=== PATIENT | female | born 1985 | race Caucasian/White ===

== ENCOUNTER 2018-10-25 10:45 | Outpatient (REF) | payer MEDICAID, SELFPAY ==
[2018-10-25 13:55] LABS: HCT 40.4 % (36.0-46.0); HGB 13.5 g/dL (12.0-15.5); Mean Corp. HGB Concentration 33.4 g/dL (32.0-36.0); Mean Corpuscular Hemoglobin 29.2 pg (27.0-33.0); Mean Corpuscular Volume 87.3 fL (80-95); Mean Platelet Volume 10.1 fL (8.0-11.0); Platelet Count 345 x1000/uL (130-400); RBC 4.63 m/cumm (4.00-5.20); RBC Distribution Width 12.5 % (11.7-14.6); White Blood Cell Count 6.47 k/cumm (4.4-10.8)
[2018-10-25 14:23] LABS: TSH (W/Ref FT4) 3.55 uIU/mL (0.358-3.74)
== END 2018-10-25 11:05 ==
LOC: NCHCN 10:45
PROVIDERS: PCP Nurse Practitioner Adult Health; Visit Provider Family Medicine
DX: R53.83 Other fatigue (principal)
CPT/HCPCS: 85027; 84443

== ENCOUNTER 2020-09-13 17:17 | Outpatient (REF) | payer MEDICAID, SELFPAY ==
--- NOTE | 2020-09-13 15:00 | PAPFT_PTH ---
PATIENT: Christina Segal LOC: NCN #:[id number] AGE/SX: 35/F ROOM: RE09/13/[address]: Ary Pradhan : 1985 BED: DIS: 09/13/2020 SPEC #: [id number] RECD: 09/14/20 13:05 STATUS: OMAR REMichelle #: [id number] FAM: 09/13/20 15:[address]: Ary Pradhan DEPT: [facility] Cytology RECD BY: Jil Christensen Tissues: 1 - CX/ENDOCX FOR PAP SMEARS Procedures: PAP THIN PREP/UVM Screening HPV DNA PROBE Comments: [id number] (CHLAMYDIA/GC)
[2020-09-17 13:39] LABS: Chlamydia Result Negative (Negative); GC Result Negative (Negative)
== END 2020-09-13 17:37 ==
LOC: NCHCN 17:17
PROVIDERS: PCP Family Medicine; Visit Provider Family Medicine
DX: Z11.3 Encounter for screening for infections with a predominantly sexual mode of transmission (principal); Z12.4 Encounter for screening for malignant neoplasm of cervix; Z11.51 Encounter for screening for human papillomavirus (HPV)
CPT/HCPCS: 87491; 87591; 88142; 87624

== ENCOUNTER 2021-06-25 01:25 | Outpatient (CLI) | payer MEDICAID, SELFPAY ==
--- NOTE | 2021-06-25 08:30 | RT.EKG_ITS ---
APPROVED REPORT Exam: Resting ECG Reason for Exam: high risk med Patient Location: O HR:71 bpm ECG Measurements Heart Rate 71 AXIS CO 177 P 52 QRSd 78 QRS 49 QT 423 T 43 QTc 458 Conclusion Sinus rhythm...normal P axis, V-rate 60- 99 Normal Electrocardiogram
== END 2021-06-25 01:26 | disposition home or self-care (01) ==
LOC: RT 01:25
PROVIDERS: PCP Family Medicine; Visit Provider Family Medicine
DX: Z51.81 Encounter for therapeutic drug level monitoring (principal)
CPT/HCPCS: 93005; 93010

== ENCOUNTER 2021-08-09 07:26 | Emergency (ER) | payer MEDICAID, SELFPAY ==
[2021-08-09] VITALS (15 sets, daily range): BP systolic 154–176; BP diastolic 97–117; PULSE 75–102; RESP 4–25; TEMP 37–37.1; O2SAT 86–100
--- NOTE | 2021-08-09 07:30 | RT.EKG_ITS ---
APPROVED REPORT Exam: Resting ECG Reason for Exam: sob Patient Location: E HR:77 bpm ECG Measurements Heart Rate 77 AXIS KS 165 P 64 QRSd 83 QRS 31 QT 428 T 27 QTc 483 Conclusion Sinus rhythm...normal P axis, V-rate 60- 99
[2021-08-09] MEDS: Albuterol/Ipratropium 3 ML UPD VIAL (08:13)
--- NOTE | 2021-08-09 08:15 | DI.RAD_ITS ---
Exam(s) XR PORTABLE CHEST AP EXAM: XR PORTABLE CHEST AP CLINICAL HISTORY: cough, covid TECHNIQUE: 2D digital imaging was performed of the chest. One image was obtained. An AP view was ob tained. COMPARISON: No exams were available for comparison FINDINGS: MEDIASTINUM: Normal. HEART: Normal. PULMONARY VASCULATURE: Normal. LUNGS: Clear. PLEURAL SPACE: No pleural effusion or pneumothorax. BONE:Within normal limits for the patient's age. OTHER FINDINGS:Normal. IMPRESSION: No acute pulmonary findings. DATA REPOSITORY: RADIATION DOSE DELIVERED:
--- NOTE | 2021-08-09 08:23 | W.ED.GENAD ---
Discharge Plan Disposition Patient Disposition: HOME Condition: Stable Discharge Details Clinical Impression: Bronchitis, COVID-19 Primary Care Provider: Ary Pradhan ED Provider: Jil Mcduffie Home Meds and New Rx's Prescriptions: New benzonatate 200 mg capsule 200 mg PO BID PRNQty: 10 RF: 0 prednisone 20 mg tablet 40 mg PO DAILY Qty: 10 RF: 0 Combivent Respimat 20-100 mcg/actuation mist 1 puff inhalation Q6H Qty: 4 RF: 0 Continued metronidazole 500 MG tablet 2 g PO ONCE Qty: 4 RF: 1 clindamycin phosphate [Cleocin T] 60 ML lotion 60 ml Topical BID Qty: 0.5 RF: 1 zolpidem 10 mg tablet 10 mg PO QHS RF: 0 escitalopram oxalate 20 mg tablet 20 mg PO DAILY RF: 0 methadone 10 mg Tablet 10 mg PO DAILY RF: 0 Discharge Instructions Instructions: Acute Bronchitis (ED) Additional Instructions: Continue to isolate until your symptoms improve Combivent 1 puff every 6 hours Increase fluid hydration, have hot tea every several hours to help break up the mucus Increase your fluid hydration to help break up the mucus Take the prednisone as prescribed for the next several days Humidifier in your room at night Please return with persistent symptoms greater than 3 days please be reassessed with worsening shortness of breath despite medical interventions, or should you have new or worsening Referrals: Ary Pradhan [Primary Care Provider] - Medical Decision Making Patient is resting comfortably in room, she is not hypoxic, she is in no respiratory distress She is feeling symptomatic improvement after 2 DuoNeb administration of steroids Clinically my suspicion for pulmonary embolism is quite low She has a pulse oximeter at home and this has not been low for her, I discussed need to return should she desaturate below 90% on room air She will be discharged with Tessalon Perles, prednisone, and a Combivent inhaler for suspected bronchitis I see no indication for antibiotics at this time she has a viral syndrome She will continue to isolate until her symptoms resolve Her chest x-ray does not show acute abnormality per my review, pending radiology interpretation No calf swelling or tenderness appreciated Initially oxygen level listed as 86, this was not an accurate test, on room air she is 98% at time of breath Given low threshold to return should she have new or worsening complaints, discharged home in stable condition with stable vital at time of reassessment, speaking complete sentences, in no lydia distress Medical Records Medical records reviewed: Yes I reviewed the patient's medical records. Lab Data Lab results reviewed: Yes I reviewed the patient's lab results. HPI General Mode of arrival: ambulatory. Date/Time Provider Initiated Documentation: 08/09/21 07:51. Limitations to Documentation: no limitations. Information obtained by: patient. HPI Narrative: This 36-year-old female who is otherwise healthy presents with report of worsening shortness of breath and cough after being diagnosed with COVID-19 on 26 July. She had been symptomatic for 4 days prior which puts her at actually day 17. She denies any fever or chills. She denies any myalgias. She states that her cough is productive but denies hemoptysis. She denies any chance of or exogenous hormones. She denies any pleuritic chest pain or any chest pain at all. Denies any calf pain or swelling. Related Data Home Medications Medication Instructions Recorded Confirmed clindamycin phosphate [Cleocin T] 60 ml TOPICAL BID #0.5 ml 06/03/16 metronidazole 2 g PO ONCE #4 tab 06/03/16 benzonatate 200 mg PO BID PRN #10 cap 08/09/21 escitalopram oxalate 20 mg PO DAILY 08/09/21 08/09/21 ipratropium-albuterol [Combivent 1 puff INHALATION Q6H #4 g 08/09/21 Respimat] methadone 10 mg PO DAILY 08/09/21 08/09/21 prednisone 40 mg PO DAILY #10 tab 08/09/21 zolpidem 10 mg PO QHS 08/09/21 08/09/21 Previous Rx's Medication Instructions Recorded benzonatate 200 mg PO BID PRN #10 cap 08/09/21 ipratropium-albuterol [Combivent 1 puff INHALATION Q6H #4 g 08/09/21 Respimat] prednisone 40 mg PO DAILY #10 tab 08/09/21 Allergies Allergy/AdvReac Type Severity Reaction Status Date / Time No Known Drug Allergies Allergy Unknown none Unverified 08/09/21 08:04 General Stated Complaint: RespSymp FLORI: 3 Review of Systems All systems reviewed & are unremarkable except as noted in HPI and below PFSH All Active Problems (Updated 08/09/21 @ 10:24 by GILMAR Quinones) Bronchitis (Acute) COVID-19 (Acute) Surgical History (Updated 06/16/18 @ 14:36 by [employer] [place]) Dilation and curettage Social History Smoking/Tobacco Use Status: Never Smoking risk assessment performed?: Yes Alcohol Intake: never Drug use: Current Sobriety Substance use type: does not use Do you feel safe at home: Yes Do you feel safe in your relationship?: Yes Exam Const General: cooperative, comfortable and no acute distress HENMT Head: normal to inspection Mouth: oral mucosae normal Eyes Pupils: PERRL Resp Effort & Inspection: normal respiratory effort Auscultation: clear to auscultation bilaterally and lung sounds not diminished Other: No respiratory distress Cardio Rate: regular rate Rhythm: regular rhythm Other: No murmur GI Other: Nontender abdominal exam Skin General skin exam: no rashes or lesions noted Neuro General: patient alert and patient oriented x3 Extrem Other: No calf swelling or tenderness appreciated on exam, distal pulses intact Psych Appearance: grossly normal and well kempt Course Vital Signs Vital signs: Vital Signs Temperature 37 C 08/09/21 07:37 Pulse 79 08/09/21 07:37 Respiratory Rate 20 08/09/21 07:37 Blood Pressure 158/116 H 08/09/21 07:37 Pulse Oximetry 100 08/09/21 07:37 Temperature 37 C 08/09/21 07:37 Temperature Source Temporal Artery Scan 08/09/21 07:37 Pulse 79 08/09/21 07:37 Respiratory Rate 20 08/09/21 07:37 Respiratory Effort 08/09/21 08:00 Respiratory Depth Normal 08/09/21 08:00 Blood Pressure 158/116 H 08/09/21 07:37 Blood Pressure Position Sitting 08/09/21 07:37 Pulse Oximetry 100 08/09/21 07:37 Oxygen Delivery Method Room Air 08/09/21 07:37 Oxygen Flow Rate 0 08/09/21 07:37
[2021-08-09] MEDS: Albuterol/Ipratropium 3 ML UPD VIAL UPD (08:53)
[2021-08-09] MEDS: methylPREDNISolone SUCC 125 MG VIAL IVP (08:53)
[2021-08-09 09:34] LABS: Abs Immature Grans 0.03 10^3/uL (0.0-0.06); Absolute Basophil Count 0.01 10^3/uL (0.0-0.2); Absolute Eosinophil Count 0.06 10^3/uL (0.0-0.7); Absolute Lymphocyte Count 2.85 10^3/uL (1.2-3.4); Absolute Monocyte Count 0.34 10^3/uL (0.1-0.8); Absolute Neutrophil Count 1.81 10^3/uL (1.2-6.7); Basophils % 0.2; Eosinophils % 1.2; HCT 40.8 % (36.0-46.0); HGB 13.5 g/dL (11.2-15.7); Immature Grans % 0.6; Lymphocytes % 55.9; MCH 28.6 pg (27.0-33.0); MCHC 33.1 % (32.0-36.0); MCV 86.4 fL (80-95); MPV 9.3 fL (8.0-11.0); Monocytes % 6.7; Neutrophils % 35.4; Nucleated RBC 0 %; Platelet Count 307 10^3/uL (130-400); RBC 4.72 10^6/uL (3.93-5.22); RDW 12.2 % (11.7-14.6); RDW-SD 38.5 fL
== END 2021-08-09 10:37 | disposition home or self-care (01) ==
PROVIDERS: Emergency Provider Physician Assistant; PCP Family Medicine
DX: U07.1 COVID-19 (principal); J20.9 Acute bronchitis, unspecified; R06.02 Shortness of breath
CPT/HCPCS: 36415; 80053; 93005; 94640; 96374; 99284; 71045; 85025; 93010; J2930; J7620

== ENCOUNTER 2023-09-04 12:16 | Emergency (ER) | payer MEDICAID, SELFPAY ==
[2023-09-04 12:20] VITALS: BP 132/80; PULSE 98; RESP 18; TEMP 37.1; O2SAT 98
[2023-09-04] MEDS: Acetaminophen 325 MG TAB 650 MG PO (13:13)
[2023-09-04] MEDS: Ibuprofen 600 MG TAB PO (13:13)
--- NOTE | 2023-09-04 14:30 | DI.RAD_ITS ---
Exam(s) XR TIB/FIB LT XR ANKLE LT COMPLETE XR KNEE LT 3V AP,LAT,ARIELLE EXAM: XR TIB/FIB LT CLINICAL HISTORY: inversion injury yest, pain. TECHNIQUE: 2D digital imaging was performed. Two views. COMPARISON: CR XR KNEE LT 3V AP,LAT,ARIELLE from 09/04/2023 CR XR ANKLE LT COMPLETE from 09/04/2023 FINDINGS: BONES: Nondisplaced fracture at the head of the proximal fibula. No additional fractures are identif ied. Heel spurs. Enthesophyte upper pole of the patella. Joints: No joint effusion. Mild narrowing of the medial femoral tibial joint space. Mild periarticu lar spurring. Ankle mortise is not widened. SOFT TISSUE: Marked swelling around malleoli. IMPRESSION: Nondisplaced fracture of the proximal fibula. DATA REPOSITORY: RADIATION DOSE DELIVERED:
--- NOTE | 2023-09-04 15:15 | ED.GENADUL_ITS ---
HPI General Mode of arrival: ambulatory . Date/Time Provider Initiated Documentation: 09/04/23 12:30 . Limitations to Documentation: no limitations . Information obtained by: patient . HPI Narrative: 38-year-old female presents with right ankle and lower leg pain. Patient notes she fell and twisted her left ankle yesterday. She has had pain in the ankle and leg since the fall. Patient notes she took Aleve last night which did not resolve her pain. Pain worse with ambulation. No associated numbness or tingling. Related Data Home Medications Medication Instructions Recorded Confirmed methadone 10 mg tablet 10 mg PO DAILY 08/09/21 09/10/23 zolpidem 10 mg tablet 10 mg PO QHS 08/09/21 09/10/23 Allergies Allergy/AdvReac Type Severity Reaction Status Date / Time No Known Drug Allergies Allergy Unknown none Unverified 09/10/23 10:38 General Stated Complaint: Orthopedic FLORI: 4 Review of Systems Musculoskeletal Musculoskeletal: Reports as per HPI Neurologic Neurologic: Reports as per HPI Exam Extrem Right lower extremity: lower leg Details: tenderness Location: of the proximal fibula and ankle Details: tenderness Location: of the lateral malleolus and swelling Other: Distal sensation and motor intact Course Vital Signs Vital signs: Vital Signs Temperature 37.1 C 09/04/23 12:20 Pulse 98 H 09/04/23 12:20 Respiratory Rate 18 09/04/23 12:20 Blood Pressure 132/80 09/04/23 12:20 Pulse Oximetry 98 09/04/23 12:20 Temperature 37.1 C 09/04/23 12:20 Temperature Source Temporal Artery Scan 09/04/23 12:20 Pulse 98 H 09/04/23 12:20 Respiratory Rate 18 09/04/23 12:20 Respiratory Effort Normal, Non-Labored 09/04/23 12:42 Blood Pressure 132/80 09/04/23 12:20 Blood Pressure Position Sitting 09/04/23 12:20 Pulse Oximetry 98 09/04/23 12:20 Oxygen Delivery Method Room Air 09/04/23 12:20 Oxygen Flow Rate 0 09/04/23 12:20 Pain Level 8 09/04/23 12:20 Medical Decision Making 38-year-old female here with left ankle and lower leg pain after twisting her ankle yesterday. Patient is neurovascularly intact distally. Concern for sprain versus fracture. X-ray of the tib-fib was reviewed and interpreted by radiology:Nondisplaced fracture of the proximal fibula. X-ray of the knee was interpreted by radiology:Nondisplaced fracture of the proximal fibula. X-ray of the ankle was interpreted by radiology: Four views. There is soft tissue swelling laterally. No obvious fractures evident. No widening of the mortise on the nonstress views. Slight widening on the gravity stress view. Talar dome appears unremarkable Suspect ankle sprain and fracture of the proximal fibula. I called and spoke with Dr. Ramsey, discussed ED presentation and course, he recommends knee immobilizer and ankle stabilizer. Plan for outpatient follow-up with orthopedics. Quality:SDOH Health Related Social Needs: No Data to Display PFSH All Active Problems (Updated 09/10/23 @ 16:15 by GILMAR Mobley) Left ankle sprain (Acute 09/03/23) Fracture of proximal end of left fibula (Acute 09/03/23) COVID-19 (Acute) Bronchitis (Acute) Surgical History (Updated 06/16/18 @ 14:36 by [employer] [place]) Dilation and curettage Social History Smoking/Tobacco Use Status: Never Smoking risk assessment performed?: Yes Alcohol Intake: never Drug use: Current Sobriety Substance use type: does not use Do you feel safe at home: Yes Do you feel safe in your relationship?: Yes Discharge Plan Disposition Patient Disposition: Home Condition: Stable Discharge Details Clinical Impression: Fracture of proximal end of left fibula, Left ankle sprain Primary Care Provider: Ary Pradhan ED Provider: Donta Mccormick Home Meds and New Rx's Prescriptions: Continued zolpidem 10 mg tablet 10 mg PO QHS Patient Comments: TAKE 1 TABLET BY MOUTH EVERY NIGHT NEEDED methadone 10 mg Tablet 10 mg PO DAILY Discharge Instructions Instructions: Ankle Sprain (ED), Leg Fracture (ED), Knee Immobilizer (ED) Additional Instructions: Please take ibuprofen over the counter. Take 600mg by mouth every 6 hours as needed for pain. Please take acetaminophen (tylenol) - 650mg every 6 hours by mouth as needed for pain. Please use knee immobilizer and lace up ankle splint over the next week. You may remove splint to arrange as tolerated. Please rest over the weekend with minimal weightbearing. Keep your leg elevated. After the weekend you may weight-bear as tolerated with use of crutches. Please follow-up with orthopedics next week. Referrals: [facility] [Provider Group] Ary Pradhan [Primary Care Provider] - Discharge Data Discharge Date/Time-TO BE ENTERED AT DEPARTURE: 09/04/23 16:03
--- NOTE | 2023-09-05 15:40 | NUR.NOTE ---
Accessed chart to print orders for crutches, immobilizer, stabilizer for [facility]. Nursing Note:
== END 2023-09-04 16:03 | disposition home or self-care (01) ==
PROVIDERS: Emergency Provider Student in an Organized Health Care Education/Training Program; PCP Family Medicine
DX: S93.402A Sprain of unspecified ligament of left ankle, initial encounter (principal); X50.1XXA Overexertion from prolonged static or awkward postures, initial encounter; Y93.89 Activity, other specified; Y92.89 Other specified places as the place of occurrence of the external cause
CPT/HCPCS: 73562; 99283; 73590; 73610

== ENCOUNTER 2023-09-10 15:14 | Outpatient (CLI) | payer MEDICAID, SELFPAY ==
--- NOTE | 2023-09-10 10:45 | DI.RAD_ITS ---
Exam(s) XR ANKLE LT COMPLETE EXAM: XR ANKLE LT COMPLETE CLINICAL HISTORY: L ankle injury. TECHNIQUE: 2D digital imaging was performed. COMPARISON: CR XR ANKLE LT COMPLETE from 09/04/2023 CR XR TIB/FIB LT from 09/04/2023 FINDINGS: Four views. There is soft tissue swelling laterally. No obvious fractures evident. No widening of the mortise on the nonstress views. Slight widening on the gravity stress view. Talar dome appears unremarkable Bone density normal. No osseous lesions. IMPRESSION: As above. DATA REPOSITORY: RADIATION DOSE DELIVERED:
== END 2023-09-10 15:15 | disposition home or self-care (01) ==
LOC: DIORS 15:14
PROVIDERS: PCP Family Medicine; Visit Provider Physician Assistant
DX: S99.912A Unspecified injury of left ankle, initial encounter (principal); X58.XXXA Exposure to other specified factors, initial encounter
CPT/HCPCS: 73610

== ENCOUNTER 2023-11-29 00:40 | Emergency (ER) | payer MEDICAID, SELFPAY ==
--- NOTE | 2023-11-29 00:47 | ED.GENADUL_ITS ---
Discharge Plan Disposition Patient Disposition: Home Condition: Stable Discharge Details Clinical Impression: Right ankle sprain Primary Care Provider: Ary Pradhan ED Provider: Vesna Hernandez Home Meds and New Rx's Prescriptions: No Action dextroamphetamine-amphetamine 30 mg capsule,extended release 24hr PO Patient Comments: TAKE ONE CAPSULE BY MOUTH EVERY DAY zolpidem 10 mg tablet 10 mg PO QHS Patient Comments: TAKE 1 TABLET BY MOUTH EVERY NIGHT NEEDED Discharge Instructions Instructions: Ankle Sprain (ED) Additional Instructions: Take Tylenol/Motrin for pain. Wear walking boot for comfort. Weight-bear as tolerated. Follow-up with orthopedics. Return with any worsening symptoms. Referrals: Andrae Hyde PA [[employer]INTE[employer]CE REPRESENTATIVE] - 1 week Discharge Data Discharge Physician: Vesna Hernandez HPI General Date/Time Provider Initiated Documentation: 11/29/23 00:43 . HPI Narrative: 38-year-old female presents for evaluation of right ankle pain and swelling. Patient states that she was walking down the side of the road when she must of stepped in an area with uneven pavement. She twisted her ankle. She now has significant pain and swelling to the lateral portion of her right ankle. Denies any numbness or tingling. No other injuries. She has injured this ankle in the past. She had a somewhat recent fracture of her left fibula. She thinks that she has been overcompensating and straining her right ankle since that time. Related Data Home Medications Medication Instructions Recorded Confirmed zolpidem 10 mg tablet 10 mg PO QHS 08/09/21 11/29/23 dextroamphetamine-amphetamine ER PO 11/29/23 30 mg 24hr capsule,extend release Allergies Allergy/AdvReac Type Severity Reaction Status Date / Time No Known Drug Allergies Allergy Unknown none Unverified 09/10/23 10:38 General FLORI: 4 Review of Systems Narrative: Remainder of review of systems otherwise negative except for as noted in the HPI x 5. Exam Narrative Exam Narrative: General: non-toxic, no respiratory distress, comfortable HEENT: normocephalic, atraumatic, lids and lashes normal, PERRL, EOMI, anicteric sclera, no conjunctival injection, moist oral mucosa Musculoskeletal: Significant swelling to right lateral malleolus with diffuse tenderness to palpation, no medial malleolus tenderness, no metatarsal tenderness, 2+ dorsal pedal pulses, sensation tact, Achilles intact, otherwise full range of motion of arms and legs, no tenderness to palpation. no clubbing, cyanosis, or edema Neurologic: appropriate for age, strength normal Psych: alert and oriented Skin: no petechiae, no lesions, warm and dry Medical Decision Making 38-year-old female presents for evaluation of right ankle pain and swelling afte r injury. She is neurologically intact. X-ray shows soft tissue swelling. No fracture. Patient is concerned about using crutches secondary to carpal tunnel. Will trial walking boot. I have recommended follow-up with orthopedics given her repeated injuries. She understands indications to return. Quality:SDOH Health Related Social Needs: No Data to Display PFSH All Active Problems (Updated 11/29/23 @ 01:19 by Vesna Hernandez MD) Right ankle sprain (Acute) COVID-19 (Acute) Bronchitis (Acute) Surgical History Dilation and curettage Social History Smoking/Tobacco Use Status: Never Smoking risk assessment performed?: Yes Alcohol Intake: never Drug use: Current Sobriety Substance use type: does not use and marijuana Do you feel safe at home: Yes Do you feel safe in your relationship?: Yes
[2023-11-29 00:48] VITALS: BP 102/60; PULSE 97; RESP 16; TEMP 36.2; O2SAT 97
--- NOTE | 2023-11-29 01:23 | DI.RAD_ITS ---
Exam(s) XR ANKLE RT COMPLETE EXAM: XR ANKLE RT COMPLETE CLINICAL HISTORY: injury, lateral swelling. TECHNIQUE: 2D digital imaging was performed of the right ankle. Three images were obtained. AP, la teral and oblique views were obtained. COMPARISON: CR XR ANKLE LT COMPLETE from 09/10/2023 FINDINGS: BONES: No acute fracture is present. No bony destructive lesion is seen. There is a small plantar ca lcaneal spur. There is also a small enthesophyte at the posterior calcaneus. JOINTS: The ankle mortise is normally aligned. SOFT TISSUE: There is soft tissue swelling around the ankle. IMPRESSION: No acute fracture or dislocation. DATA REPOSITORY: RADIATION DOSE DELIVERED:
--- NOTE | 2023-11-29 01:31 | DI.VRAD_ITS ---
PROCEDURE INFORMATION: Exam: XR Right Ankle Exam date and time: 11/29/2023 1:02 AM Age: 38 years old Clinical indication: Injury or trauma; Fall; Blunt trauma; Ankle; Right; Injury date: 11/29/23; Patient HX: Injury, lateral swelling TECHNIQUE: Imaging protocol: Radiologic exam of the right ankle. Views: 3 or more views. COMPARISON: No relevant prior studies available. FINDINGS: Bones/joints: No fracture. Soft tissues: Soft tissue swelling over the lateral malleolus. IMPRESSION: 1. Soft tissue swelling over the lateral malleolus. 2. No fracture. Dictated and Authenticated by: Santosh Alvarenga MD. Ordering:REE Malagon MD
[2023-11-29] MEDS: Acetaminophen 500 MG TAB 1000 MG PO (02:11)
[2023-11-29] MEDS: Ibuprofen 600 MG TAB PO (02:11)
--- NOTE | 2023-12-01 07:16 | NUR.NOTE ---
Accessed Pt chart to obtain diagnosis for the [facility] paperwork.
== END 2023-11-29 02:16 | disposition home or self-care (01) ==
PROVIDERS: Emergency Provider Emergency Medicine Emergency Medical Services; PCP Family Medicine
DX: S93.401A Sprain of unspecified ligament of right ankle, initial encounter (principal); X50.1XXA Overexertion from prolonged static or awkward postures, initial encounter; Y93.01 Activity, walking, marching and hiking; Y92.414 Local residential or business street as the place of occurrence of the external cause
CPT/HCPCS: 99283; 73610

== ENCOUNTER 2024-08-08 08:07 | Emergency (ER) | payer MEDICAID, SELFPAY ==
[2024-08-08 08:24] VITALS: BP 114/66; PULSE 69; RESP 18; TEMP 36.7; O2SAT 99
[2024-08-08 08:34] VITALS: BP 114/66; PULSE 69; RESP 18; TEMP 36.7; O2SAT 99
--- NOTE | 2024-08-08 08:39 | ED.GENADUL_ITS ---
Discharge Plan Disposition Patient Disposition: Home Condition: Stable Discharge Details Clinical Impression: Hyperemesis gravidarum, Positive test Primary Care Provider: Ary Pradhan ED Provider: Jalyn Jiménez Home Meds and New Rx's Prescriptions: No Action No Known Home Meds Discharge Instructions Instructions: Morning Sickness ED Additional Instructions: Please take the nausea medication as directed. You may also follow-up with women's wellness regarding the . Your urine is tested positive for this morning. Small frequent meals, small sips of fluid to keep yourself hydrated. Try estefani and lemon. Follow up with primary care provider in 3-5 days. Return to ED sooner if any worsening or concerns. Referrals: [facility] [Provider Group] - 3 days Ary Pradhan [Primary Care Provider] - 1 week HPI General Mode of arrival: ambulatory . Date/Time Provider Initiated Documentation: 08/08/24 08:16 . Limitations to Documentation: no limitations . Information obtained by: patient, RN notes reviewed and old records reviewed . HPI Narrative: 39-year-old female presents to the ER with a chief complaint of vomiting over the last 3 days. She reports increased nausea over the last week. She reports that she is unable to hold anything down at this time and is just vomiting bile. She is concerned that she could possibly be . Last normal menstrual period was approximately a month and a half ago although she states that she has irregular periods. She is not currently on any control. Denies any vaginal bleeding or discharge. Denies any abdominal pain or any other associated symptoms. She reports that she took her methadone last week and endorses meth monitor. Is not a smoker. Denies any alcohol. Related Data Home Medications ?Medication ?Instructions ?Recorded ?Confirmed Unknown [No Known Home Meds] 08/08/24 08/08/24 Allergies Allergy/AdvReac Type Severity Reaction Status Date / Time No Known Drug Allergies Allergy Unknown none Verified 08/08/24 08:33 General Stated Complaint: Nausea/Vomit/Diar FLORI: 3 Review of Systems All systems reviewed & are unremarkable except as noted in HPI and below Gastrointestinal Gastrointestinal: Reports nausea and Reports vomiting Exam Narrative Exam Narrative: Constitutional: Alert and oriented x3. Appears stated age. Normal body habitus. Head: Normocephalic, no trauma. Eyes: Pupils PERRL, Red reflex noted, EOM's intact. Eyelids symmetrical without lesions, discharge, or swelling. ENT: Bilateral TM's WNL, External ear normal to inspection, no mastoid TTP, swelling, or erythema, Nasal turbinates WNL, no nasal discharge. Normal dentition, Posterior pharynx WNL, no exudate. Chest: RRR, Normal S1, S2, distal pulses intact. Resp: Lungs clear to auscultation bilaterally, no wheezes, rales, or rhonchi. Abdomen: Soft, non-distended, Normoactive bowel sounds all 4 quads. Musculoskeletal: Normal gait, Moves all 4 extremities without difficulty. Skin: No suspicious rashes or lesions. Capillary refill less than 2 sec. Neurologic: Cranial nerves II-XII intact. Alert and oriented x 3. Motor: No deficits noted. Sensory: Intact bilaterally all 4 extremities. Hematologic/Lymphatic: No ecchymosis, no lymphadenopathy. Course Vital Signs Vital signs: Vital Signs Temperature 36.7 C 08/08/24 08:24 Pulse 69 08/08/24 08:24 Respiratory Rate 18 08/08/24 08:24 Blood Pressure 114/66 08/08/24 08:24 Pulse Oximetry 99 08/08/24 08:24 Temperature 36.7 C 08/08/24 08:34 Temperature Source Oral 08/08/24 08:34 Pulse 69 08/08/24 08:34 Respiratory Rate 18 08/08/24 08:34 Respiratory Effort Normal, Non-Labored 08/08/24 08:34 Blood Pressure 114/66 08/08/24 08:34 Blood Pressure Position Sitting 08/08/24 08:34 Pulse Oximetry 99 08/08/24 08:34 Oxygen Delivery Method Room Air 08/08/24 08:34 Oxygen Flow Rate 0 08/08/24 08:34 Pain Level 0 08/08/24 08:34 Lab/Test Results Lab/Test Results: POC- Test(urine) Positive Medical Decision Making 39-year-old female presents to the ER with a chief complaint of vomiting over the last 3 days. She reports increased nausea over the last week. She reports that she is unable to hold anything down at this time and is just vomiting bile. She is concerned that she could possibly be . Last normal menstrual period was approximately a month and a half ago although she states that she has irregular periods. Urine test is positive. Patient informed she verbalized understanding. Patient is declining any lab work at this time and would prefer to follow-up with women's wellness regarding the . Will give Zofran ODT and perform p.o. challenge. 0906: Patient keeping down water reports feeling much better. Will send home with a few tablets of Zofran ODT and have patient follow-up with women's wellness. Patient ambulatory from department hemodynamically stable. This text was generated using [employer] dictation system, please disregard any oddities of phrase or misspellings. Quality:SDOH Health Related Social Needs: No Data to Display PFSH All Active Problems (Updated 08/08/24 @ 10:24 by Jalyn Jiménez NP) Positive test (Acute) Hyperemesis gravidarum (Acute) COVID-19 (Acute) Bronchitis (Acute) Surgical History Dilation and curettage Social History Smoking/Tobacco Use Status: Never Smoking risk assessment performed?: Yes Alcohol Intake: never Drug use: Current Sobriety Substance use type: does not use and marijuana Details: methadone 10mg last week Do you feel safe at home: Yes Do you feel safe in your relationship?: Yes
[2024-08-08] MEDS: Ondansetron O.D.T. 4 MG TABEF PO (08:45)
[2024-08-08] MEDS: Ondansetron O.D.T. 4 MG TABEF, 3 TABS/BTL PO (09:13)
[2024-08-08 09:25] LABS: Bilirubin Small (Negative); Blood Moderate (Negative); Clarity Sl Cloudy (Clear); Glucose Negative (Negative); Ketones Negative (Negative); Leukocyte Esterase Small (Negative); Nitrite Negative (Negative); Specific Gravity 1.025 (1.005-1.025); Urobilinogen 0.2 mg/dL (Up to 0.2); pH 5.5 (5-8)
[2024-08-08 09:36] LABS: Epithelial Cells Many HPF (Negative)
[2024-08-08 09:37] LABS: C & S Indicated? No/Sq. Contamination
[2024-08-08 10:13] VITALS: BP 121/53; PULSE 60; RESP 18; O2SAT 96
== END 2024-08-08 09:19 | disposition home or self-care (01) ==
PROVIDERS: Emergency Provider Registered Nurse Emergency; PCP Family Medicine
DX: O21.0 Mild hyperemesis gravidarum (principal); Z3A.01 Less than 8 weeks gestation of pregnancy
CPT/HCPCS: 99283; 81003; 81015

== ENCOUNTER 2024-12-19 09:59 | Outpatient (CLI) | payer MEDICAID, SELFPAY ==
[2024-12-20 08:18] LABS: Syphilis Serology (RPR) Negative (Negative)
[2024-12-20 10:59] LABS: HIV-1/2 Ag & Ab Screen Negative (Negative)
== END 2024-12-19 10:00 | disposition home or self-care (01) ==
LOC: LBO 10:00
PROVIDERS: PCP Family Medicine; Visit Provider Physician Assistant Medical
DX: Z11.3 Encounter for screening for infections with a predominantly sexual mode of transmission (principal); Z11.4 Encounter for screening for human immunodeficiency virus [HIV]
CPT/HCPCS: 36415; 87389; 86592

== ENCOUNTER 2025-06-18 22:21 | Observation (INO) | payer MEDICAID, SELFPAY ==
[2025-06-18] VITALS (20 sets, daily range): BP systolic 103–155; BP diastolic 58–110; PULSE 63–130; RESP 11–28; TEMP 37.2; O2SAT 79–97
--- NOTE | 2025-06-18 22:15 | RT.EKG_ITS ---
APPROVED REPORT Exam: Resting ECG Reason for Exam: lightheaded, passed out Patient Location: E HR:89 bpm ECG Measurements Heart Rate 89 AXIS FL 141 P 50 QRSd 70 QRS 42 QT 342 T 36 QTc 417 Conclusion Sinus rhythm...normal P axis, V-rate 60- 99 Normal Electrocardiogram
--- NOTE | 2025-06-18 22:22 | ED.GENADUL_ITS ---
Discharge Plan Disposition Patient Disposition: Admit to [facility] Condition: Fair Discharge Details Clinical Impression: GI bleed Primary Care Provider: Ary Pradhan ED Provider: Naun Sloan [place] Meds and New Rx's Prescriptions: No Action buprenorphine-naloxone [Suboxone] 12-3 mg film 1 film buccal Q24H Patient Comments: 18mg dextroamphetamine-amphetamine [Adderall] 30 mg tablet 30 mg PO DAILY Patient Comments: 30mg in AM 10mg at 1200 naloxone [Narcan] 4 mg/actuation spray,non-aerosol 1 spray intranasal Q2M Rx Instructions: spray 1 dose into ONE nostril; alternate nostrils w each dose until help arrives zolpidem 10 mg tablet 10 mg PO QHS PRN HPI General Mode of arrival: ambulatory . Date/Time Provider Initiated Documentation: 06/18/25 22:22 . Limitations to Documentation: no limitations . Information obtained by: patient and RN notes reviewed . HPI Narrative: Patient presents to the ED with a syncopal event earlier in the day and 2 episodes of bloody stool. Patient reports this has never happened to her before. She reports she was okay while she was lying down. Standing up makes her lightheaded and sweaty. Initial episode this afternoon around 4 PM. She reports passing out while on the toilet but not actually falling or injuring herself. Had a second bowel movement about an hour prior to arrival this evening which seemed to be more blood than stool. She has had some mild intermittent upper abdominal discomfort for the last couple of days. She has had nausea today and has been taking ondansetron. Denies any chest pain but has had some dyspnea on exertion today. Related Data Home Medications ?Medication ?Instructions ?Recorded ?Confirmed dextroamphetamine-amphetamine 30 30 mg PO DAILY 06/18/25 mg tablet (Adderall) naloxone 4 mg/actuation nasal 1 spray intranasal Q2M 0 11/23/24 06/18/25 spray (Narcan) zolpidem 10 mg tablet 10 mg PO QHS PRN 11/23/24 buprenorphine 12 mg-naloxone 3 mg 1 film buccal Q24H 0 03/01/25 06/18/25 sublingual film (Suboxone) Allergies Allergy/AdvReac Type Severity Reaction Status Date / Time doxycycline Allergy Mild vomiting Verified 06/18/25 22:28 General FLORI: 3 Exam Narrative Exam Narrative: Const: WDWN female in NAD. VS per triage. HEENT: NC/AT. Normal facial exam. Neck: Supple. Trachea midline. Lungs: Normal respiratory effort. Lungs are clear. Cor: RRR without murmur. Good radial pulses. GI: Soft/ND/NT. Neuro: A+O x 3. Normal speech, mentation, gait. Cranial nerves II - XII grossly intact. No gross motor or sensory deficit. Ext: No C/C/E. Medical Decision Making Patient presenting to the ED with syncopal event this afternoon and 2 episodes of bloody stool. Denies any current pain. Has been having upper abdominal discomfort on/off. Nausea but no vomiting. Will place IV, get orthostatics and start fluids. Labs including type and screen sent. EKG obtained on arrival is normal per my read. Patient is very orthostatic and symptomatic. Last hemoglobin in 2020 was normal in 13 range. Tonight hgb is 9.9. Platelets and coags normal. LFTs normal. BUN elevated but creatinine normal. On further discussion with patient she uses ibuprofen on a very regular basis. Her first BM this afternoon was dark/black along with some blood. Second BM less dark and more blood. All of this was point to an UGI bleed. She doesn't need transfusion currently. Pantoprazole IVP ordered. Discussed with patient and will plan admit. Discussed with hospitalist. Called and discussed with surgery, aware patient is being admitted. Medical Records Medical records reviewed: Yes I reviewed the patient's medical records. Medical records narrative: labs Lab Data Lab results reviewed: Yes I reviewed the patient's lab results. Lab results narrative: see [facility] ECG Data Attestation: I personally reviewed and interpreted this ECG (s) as follows: Prior ECG tracings: available for review Interpretation: see MDM/EKG PFSH All Active Problems (Updated 06/18/25 @ 23:38 by Naun Sloan MD) GI bleed (Chronic) Right carpal tunnel syndrome (Acute) Attention deficit disorder (Acute) Family problems (Acute) Abnormal immunological finding in specimen from female genital organ (Acute) Paresthesia (Acute) Fatigue (Acute) Acne (Acute) Amenorrhea (Acute) Periapical abscess (Acute) Insomnia (Acute) Opioid dependence (Acute) Anxiety (Chronic) Obesity (Chronic) Medical History Anemia FH: cholecystectomy Surgical History History of cholecystectomy Hx of appendectomy Dilation and curettage Family History (Updated 06/18/25 @ 22:24 by Naun Sloan MD) Father Hypertension Maternal Grandmother Heart disease Maternal Grandfather Diabetes Other FH: cholecystectomy Social History Smoking/Tobacco Use Status: Never Smoking risk assessment performed?: Yes Alcohol Intake: never Drug use: Current Sobriety Substance use type: does not use and marijuana Details: methadone 10mg last week Do you feel safe at home: Yes Do you feel safe in your relationship?: Yes Female Reproductive History Menstrual Age of Menarche: 14 control method: none History Past Pregnancies Del. Date GA/Weeks # Preg Succ Route Wgt Sex Labor Lgth Anesth esia Location Prov Complic Unknown No Yes vaginal 3486.991 g Female
[2025-06-18 23:00] LABS: Abs Immature Grans 0.05 10^3/uL (0.0-0.06); BE (Venous) 1 mmol/L (-2-3); HCO3 (Venous) 27 mmol/L (23-28); HCT 29.3 % (36.0-46.0); HGB 9.9 g/dL (11.2-15.7); Immature Grans % 0.5 %; MCH 29.3 pg (27.0-33.0); MCHC 33.8 % (32.0-36.0); MCV 87 fL (80-95); MPV 9.2 fL (8.0-11.0); O2 Sat (Venous) 58 %; Platelet Count 344 10^3/uL (130-400); RBC 3.38 10^6/uL (3.93-5.22); RDW 13.1 % (11.7-14.6); RDW-SD 40.8 fL; TCO2 (Venous) 25 mmol/L (24-29); WBC 10.35 10^3/uL (4.4-10.8); pCO2 (Venous) 48 mmHg (41-51); pO2 (Venous) 31 mmHg
[2025-06-18] MEDS: Normal Saline 1,000 ML 1000 ML IV (23:10)
[2025-06-18 23:15] LABS: INR 1.0 (0.9-1.1); PTT Activated 21.9 sec (20.6-30.2); Prothrombin Time 9.7 sec (9.1-11.1)
[2025-06-18 23:17] LABS: ALT 32 U/L (14-59); AST 16 U/L (15-37); Albumin 3.8 g/dL (3.4-5.0); Alkaline Phosphatase 58 U/L (46-116); Anion Gap 9.4 mmol/L (3-11); BUN 31 mg/dL (7-18); Bilirubin, Total 0.3 mg/dL (0.2-1.0); CO2 27.6 mmol/L (21.0-32.0); Calcium 8.2 mg/dL (8.5-10.1); Chloride 102 mmol/L (98-107); Estimated GFR 116.30 (mL/min/1.73m2); Glucose 131 mg/dL (74-106); Potassium 3.8 mmol/L (3.5-5.1); Sodium 139 mmol/L (136-145); Total Protein 7.2 g/dL (6.4-8.2)
[2025-06-18] MEDS: Pantoprazole 40 MG VIAL IVP (23:39)
[2025-06-18] MEDS: Normal Saline 100 ML 200 ML (23:43)
[2025-06-19] VITALS (75 sets, daily range): BP systolic 113–152; BP diastolic 52–93; PULSE 66–138; RESP 12–25; TEMP 36–37; O2SAT 93–100; BMI 38.3
[2025-06-19 00:18] LABS: HCG Qual (Urine) Negative
[2025-06-19 00:19] LABS: Glucose Negative (Negative)
--- NOTE | 2025-06-19 00:30 | W.PM.HP.N ---
Date of service: 06/19/25 Time of Service: 00:30 Assessment and Plan Assessment and plan (1) GI bleed: Status: Chronic Assessment and plan: Patient is on Protonix 40 mg IV twice daily. Consultation with general surgery has been placed. It should show up on Dr. Recio's list but would verify the AM. Potential colonoscopy versus panendoscopy. (2) Syncope: Status: Chronic Assessment and plan: Most likely secondary to anemia. Will monitor on telemetry overnight. (3) Nausea: Status: Acute Assessment and plan: Add Zofran as necessary. (4) Abnormal GSJ-mb-[id number] ratio: Status: Acute Assessment and plan: GI bleed versus dehydration. Give IV rehydration and recheck labs in the AM. (5) Abdominal pain: Status: Acute Assessment and plan: Does sound like the patient could have peptic ulcer disease. Would find out Dr. Garay's plan and consider a H. pylori. He does not plan on doing an endoscopy. (6) Anemia: Status: Chronic Assessment and plan: Will check at iron and TIBC as well as a reticulocyte count check. Recheck CBC in the AM. INR is within normal limits. Considering her potential for bleeding we will hold off on chemical prophylaxis will add SCDs. History of Present Illness History of Present Illness Chief Complaint: dizziness Narrative: This is a 40-year-old female who is fairly healthy presents with no 1 day history of 2 episodes of blood in her stool. This was associated with presyncope as well as 1 episode of syncope. The patient denied striking her head and states that she believes she just fell on her arm. At this time no further imaging is available. Workup in the ED did show anemia as well as fairly significant orthostatic hypotension. Considering the fact that her hemoglobin is now 9.9 and was as high as a bleed 14 on her last check recommendation was made to admit her to have further evaluation and treatment. Of note, her BUN/creatinine ratio is 31/0.6. Per my discussion with the ED physician Dr. Sloan when I asked if he would call of her stool was done, it was relayed to me that this is no longer the standard of care. I did recommend that the patient also get in touch with general surgery if there is concerns about a GI bleed. Patient states that she has been taking more NSAIDs recently. Patient does endorse some gnawing sensation in her stomach when she is hungry. Patient states nothing like this has happened before. Patient denies any family history of early onset colon cancer. Patient denies any current use of tobacco alcohol or drugs. She does have a history of opiate use but she has been clean for over a year. Patient is on Suboxone. Patient is also on Adderall for ADHD. In reviewing her chart, it does not appear the patient has a UCG done for a urinalysis. EKG does show a normal sinus rhythm also appears to have potential LVH. Review of Systems All systems reviewed & are unremarkable except as noted in HPI and below PFSH All Active Problems (Updated 06/19/25 @ 00:39 by Naun Nair MD) Anemia (Chronic) Abdominal pain (Acute) Abnormal FTC-[id number] ratio (Acute) Nausea (Acute) Syncope (Chronic) GI bleed (Chronic) Right carpal tunnel syndrome (Acute) Attention deficit disorder (Acute) Family problems (Acute) Abnormal immunological finding in specimen from female genital organ (Acute) Paresthesia (Acute) Fatigue (Acute) Acne (Acute) Amenorrhea (Acute) Periapical abscess (Acute) Insomnia (Acute) Opioid dependence (Acute) Anxiety (Chronic) Obesity (Chronic) Medical History Anemia FH: cholecystectomy Surgical History History of cholecystectomy Hx of appendectomy Dilation and curettage Family History (Updated 06/18/25 @ 22:24 by Naun Sloan MD) Father Hypertension Maternal Grandmother Heart disease Maternal Grandfather Diabetes Other FH: cholecystectomy Social History Smoking/Tobacco Use Status: Never Smoking risk assessment performed?: Yes Alcohol Intake: never Drug use: Current Sobriety Substance use type: does not use and marijuana Details: methadone 10mg last week Do you feel safe at home: Yes Do you feel safe in your relationship?: Yes Female Reproductive History Menstrual Age of Menarche: 14 control method: none History Past Pregnancies Del. Date GA/Weeks # Preg Succ Route Wgt Sex Labor Lgth Anesthesia Location Prov Complic Unknown No Yes vaginal 3486.991 g Female Meds Allergies and Home Medications Allergies Allergy/AdvReac Type Severity Reaction Status Date / Time doxycycline Allergy Mild vomiting Verified 10/19/25 22:28 Home Medications ?Medication ?Instructions ?Recorded ?Confirmed ?Type dextroamphetamine-amphetamine 30 30 mg PO DAILY 11/23/24 06/18/25 History mg tablet (Adderall) naloxone 4 mg/actuation nasal 1 spray intranasal Q2M 11/23/24 06/18/25 History spray (Narcan) zolpidem 10 mg tablet 10 mg PO QHS PRN 11/23/24 06/18/25 History buprenorphine 12 mg-naloxone 3 mg 1 film buccal Q24H 03/01/25 06/18/25 History sublingual film (Suboxone) Exam Narrative Exam Narrative: HEENT-normocephalic atraumatic mucous membranes moist oropharynx is clear Neck-no lymphadenopathy no JVD no thyromegaly Cardiovascular-regular rate and rhythm no murmur rubs or gallops Lungs-clear to auscultation bilaterally with good air exchange Abdomen-soft nontender nondistended. Bowel sounds active x 4 Extremities-no sinus clubbing or edema bilaterally Neurologic-nonfocal Results Labs 06/18/25 22:50 06/18/25 22:50 Labs: Laboratory Results - last 24 hr 06/18/25 06/18/25 22:50 23:00 WBC 10.35 RBC 3.38 L Hgb 9.9 L Hct 29.3 L MCV 87 MCH 29.3 MCHC 33.8 RDW 13.1 Plt Count 344 MPV 9.2 Immature Gran % 0.5 Neutrophils % 71.7 Lymphocytes % 23.7 Monocytes % 3.9 Eosinophils % 0.0 Basophils % 0.2 Nucleated RBC % 0.0 Absolute Neutrophils 7.43 H Absolute Lymphocytes 2.45 Absolute Monocytes 0.40 Absolute Eosinophils 0.00 Absolute Basophils 0.02 PT 9.7 INR 1.0 APTT 21.9 VBG pH 7.35 VBG pCO2 48 VBG pO2 31 VBG HCO3 27 VBG Total CO2 25 VBG O2 Saturation 58 VBG Base Excess 1 VBG Lactate 1.7 Sodium 139 Potassium 3.8 Chloride 102 Carbon Dioxide 27.6 Anion Gap 9.4 BUN 31 H Creatinine 0.6 Est GFR (CKD-EPI 2020) 116.30 Glucose 131 H Calcium 8.2 L Total Bilirubin 0.3 AST 16 ALT 32 Alkaline Phosphatase 58 Total Protein 7.2 Albumin 3.8 Urine Color Yellow Urine Clarity Clear Urine pH 6.0 Ur Specific [place] 1.015 Urine Protein Negative Urine Ketones Trace H Urine Blood Negative Urine Nitrite Negative Urine Bilirubin Negative Urine Urobilinogen 0.2 Ur Leukocyte Esterase Negative Urine Glucose Negative Urine HCG, Qual Negative ABO/Rh B Negative Antibody Screen NEGATIVE Last Vital Signs Temp 37.2 C 06/18/25 22:23 Pulse 88 06/19/25 00:20 Resp 21 06/19/25 00:20 BP 116/52 L 06/19/25 00:18 Pulse Ox 97 06/19/25 00:20 Time Spent Time spent with Patient: 40-54 minutes Time was spent: preparing to see the patient(eg.review tests), obtaining and/or reviewing separately otained hiistory, ordering medications,tests, procedures, referring, communicating with other health director medicare sales, indepentently interpreting results, counseling the patient and care coordination
--- NOTE | 2025-06-19 00:37 | W.PC.ACHO ---
Registration Status: REG ER Primary Language: Preferred Language: Latvian ED Information & Data Chief Complaint Abd Prob 06/18/25 22:28 Chief Complaint Abd Prob 06/18/25 22:23 Triage Note PT states that she was 06/18/25 22:23 having a BM and had a syncopal episode at 1600. PT states that she had blood in her stool. PT is nauseous . PT took zofran at 1600 Medical / Surgical History (Last Reviewed 06/18/25 @ 22:24 by Naun Sloan MD) Anemia FH: cholecystectomy (Last Reviewed 06/18/25 @ 22:24 by Naun Sloan MD) History of cholecystectomy Hx of appendectomy Dilation and curettage Most Recent Vital Signs Temperature 37.2 C 06/18/25 22:23 Temperature Source Oral 06/18/25 22:23 Pulse 88 06/19/25 00:20 Pulse 86 06/19/25 00:20 Respiratory Rate 21 06/19/25 00:20 Blood Pressure 116/52 L 06/19/25 00:18 Blood Pressure Mean 74 06/19/25 00:18 Pulse Oximetry 97 06/19/25 00:20 Oxygen Delivery Method Room Air 06/18/25 22:23 Oxygen Flow Rate 0 06/18/25 22:23 Pain Level 7 06/18/25 22:23 Allergies doxycycline Allergy (Mild, Verified 06/18/25 22:28) vomiting IV IV Catheter Type [Left Peripheral IV Antecubital] IV Catheter Gauge [Left 18 Antecubital] Diet Orders Category Date Time Status Nothing Per Oral [DIET] Nutrition 06/19/25 00:22 Active Diagnostics 06/19/25 06/19/25 06/18/25 Range/Units 08:30 05:35 23:00 WBC Pending (4.4-10.8) 10^3/uL RBC Pending (3.93-5.22) 10^6/uL Hgb Pending (11.2-15.7) g/dL Hct Pending (36.0-46.0) % MCV Pending (80-95) fL MCH Pending (27.0-33.0) pg MCHC Pending (32.0-36.0) % RDW Pending (11.7-14.6) % Plt Count Pending (130-400) 10^3/uL MPV Pending (8.0-11.0) fL Reticulocyte % (Auto) Pending Immature Gran % Pending % Neutrophils % Pending % Lymphocytes % Pending % Monocytes % Pending % Eosinophils % Pending % Basophils % Pending % Nucleated RBC % (0.0-0.3) % Absolute Neutrophils Pending (1.2-6.7) 10^3/uL Absolute Lymphocytes Pending (1.2-3.4) 10^3/uL Absolute Monocytes Pending (0.1-0.8) 10^3/uL Absolute Eosinophils Pending (0.0-0.7) 10^3/uL Absolute Basophils Pending (0.0-0.2) 10^3/uL PT (9.1-11.1) sec INR (0.9-1.1) APTT (20.6-30.2) sec VBG pH (7.31-7.41) VBG pCO2 (41-51) mmHg VBG pO2 mmHg VBG HCO3 (23-28) mmol/L VBG Total CO2 (24-29) mmol/L VBG O2 Saturation % VBG Base Excess (-2-3) mmol/L VBG Lactate (<or=2.0) mmol/L Sodium Pending (136-145) mmol/L Potassium Pending (3.5-5.1) mmol/L Chloride Pending (98-107) mmol/L Carbon Dioxide Pending (21.0-32.0) mmol/L Anion Gap Pending (3-11) mmol/L BUN Pending (7-18) mg/dL Creatinine Pending (0.55-1.02) mg/dL Est GFR (CKD-EPI 2020) Pending (mL/min/1.73m2) Glucose Pending (74-106) mg/dL Calcium Pending (8.5-10.1) mg/dL Iron Pending TIBC Pending Transferrin % Sat Pending Total Bilirubin Pending (0.2-1.0) mg/dL AST Pending (15-37) U/L ALT Pending (14-59) U/L Alkaline Phosphatase Pending (46-116) U/L Total Protein Pending (6.4-8.2) g/dL Albumin Pending (3.4-5.0) g/dL Urine Color Yellow (Yellow) Urine Clarity Clear (Clear) Urine pH 6.0 (5-8) Ur Specific [place] 1.015 (1.005-1.025) Urine Protein Negative (Neg-Trace) mg/dL Urine Ketones Trace H (Negative) mg/dL Urine Blood Negative (Negative) Urine Nitrite Negative (Negative) Urine Bilirubin Negative (Negative) Urine Urobilinogen 0.2 (Up to 0.2) mg/dL Ur Leukocyte Esterase Negative (Negative) Urine Glucose Negative (Negative) mg/dL Urine HCG, Qual Negative ABO/Rh Antibody Screen 06/18/25 Range/Units 22:50 WBC 10.35 (4.4-10.8) 10^3/uL RBC 3.38 L (3.93-5.22) 10^6/uL Hgb 9.9 L (11.2-15.7) g/dL Hct 29.3 L (36.0-46.0) % MCV 87 (80-95) fL MCH 29.3 (27.0-33.0) pg MCHC 33.8 (32.0-36.0) % RDW 13.1 (11.7-14.6) % Plt Count 344 (130-400) 10^3/uL MPV 9.2 (8.0-11.0) fL Reticulocyte % (Auto) Immature Gran % 0.5 % Neutrophils % 71.7 % Lymphocytes % 23.7 % Monocytes % 3.9 % Eosinophils % 0.0 % Basophils % 0.2 % Nucleated RBC % 0.0 (0.0-0.3) % Absolute Neutrophils 7.43 H (1.2-6.7) 10^3/uL Absolute Lymphocytes 2.45 (1.2-3.4) 10^3/uL Absolute Monocytes 0.40 (0.1-0.8) 10^3/uL Absolute Eosinophils 0.00 (0.0-0.7) 10^3/uL Absolute Basophils 0.02 (0.0-0.2) 10^3/uL PT 9.7 (9.1-11.1) sec INR 1.0 (0.9-1.1) APTT 21.9 (20.6-30.2) sec VBG pH 7.35 (7.31-7.41) VBG pCO2 48 (41-51) mmHg VBG pO2 31 mmHg VBG HCO3 27 (23-28) mmol/L VBG Total CO2 25 (24-29) mmol/L VBG O2 Saturation 58 % VBG Base Excess 1 (-2-3) mmol/L VBG Lactate 1.7 (<or=2.0) mmol/L Sodium 139 (136-145) mmol/L Potassium 3.8 (3.5-5.1) mmol/L Chloride 102 (98-107) mmol/L Carbon Dioxide 27.6 (21.0-32.0) mmol/L Anion Gap 9.4 (3-11) mmol/L BUN 31 H (7-18) mg/dL Creatinine 0.6 (0.55-1.02) mg/dL Est GFR (CKD-EPI 2020) 116.30 (mL/min/1.73m2) Glucose 131 H (74-106) mg/dL Calcium 8.2 L (8.5-10.1) mg/dL Iron TIBC Transferrin % Sat Total Bilirubin 0.3 (0.2-1.0) mg/dL AST 16 (15-37) U/L ALT 32 (14-59) U/L Alkaline Phosphatase 58 (46-116) U/L Total Protein 7.2 (6.4-8.2) g/dL Albumin 3.8 (3.4-5.0) g/dL Urine Color (Yellow) Urine Clarity (Clear) Urine pH (5-8) Ur Specific [place] (1.005-1.025) Urine Protein (Neg-Trace) mg/dL Urine Ketones (Negative) mg/dL Urine Blood (Negative) Urine Nitrite (Negative) Urine Bilirubin (Negative) Urine Urobilinogen (Up to 0.2) mg/dL Ur Leukocyte Esterase (Negative) Urine Glucose (Negative) mg/dL Urine HCG, Qual ABO/Rh B Negative Antibody Screen NEGATIVE [id number] Documentation POC Urine Test Start: 06/18/25 23:04 Freq: .Urine Test Status: Active Protocol: Activity Type Activity Date Activity User E-sign Co-sign Detail Recorded Client Recorded Date Recorded By Document 06/18/25 23:04 NAEL ED02 06/18/25 23:06 NAEL Intake and Output - 24 Hour Total 06/18/25 22:21 thru 06/18/25 22:23 Weight 99.79 kg Falls Risk Assessment History of Falls Admit Due to Fall 06/18/25 22:28 Contributing Factors No Factors 06/18/25 22:28 Ambulatory Aids Independent 06/18/25 22:28 Tubes/Lines None 06/18/25 22:28 Gait Evaluation No gait disturbance 06/18/25 22:28 Cognition No cognitive impairment 06/18/25 22:28 Fall Total Score 06/18/25 22:28 Level of Risk Moderate Risk 06/18/25 22:28 v v v v v v v v v Sending and/or Receiving Nurses: Please use comment section below to note any information pertinent to the patient hand-off not included above. Information / Comments: Report taken from ED RN , patient is alert and oriented x 4. She came in due to syncopal episode, pale looking, orthos blood pressure shows hypertensive. Received one liter of NS, she will be for surgical consult. Patient had black stools. Has g.#18 on left AC. Report received from:
[2025-06-19] MEDS: Lactated Ringers 1,000 ML 125 ML IV ×3 (00:58→17:42)
[2025-06-19] MEDS: PANTOPRAZOLE 40 MG in Normal Saline 100 ML 10 MG IV (01:23)
[2025-06-19] MEDS: Ondansetron 4 MG/2 ML VIAL IVP ×2 (01:23→15:21)
[2025-06-19] MEDS: Zolpidem 10 MG TAB PO ×2 (01:23→20:14)
[2025-06-19 06:41] LABS: Abs Immature Grans 0.02 10^3/uL (0.0-0.06); HCT 25.4 % (36.0-46.0); HGB 8.6 g/dL (11.2-15.7); Immature Grans % 0.3 %; MCH 29.4 pg (27.0-33.0); MCHC 33.9 % (32.0-36.0); MCV 87 fL (80-95); MPV 8.9 fL (8.0-11.0); Platelet Count 258 10^3/uL (130-400); RBC 2.93 10^6/uL (3.93-5.22); RDW 13.2 % (11.7-14.6); RDW-SD 40.9 fL; WBC 7.51 10^3/uL (4.4-10.8)
[2025-06-19 07:02] LABS: ALT 28 U/L (14-59); AST 14 U/L (15-37); Albumin 3.2 g/dL (3.4-5.0); Alkaline Phosphatase 43 U/L (46-116); Anion Gap 7.9 mmol/L (3-11); BUN 26 mg/dL (7-18); Bilirubin, Total 0.2 mg/dL (0.2-1.0); CO2 29.1 mmol/L (21.0-32.0); Calcium 7.8 mg/dL (8.5-10.1); Chloride 104 mmol/L (98-107); Estimated GFR 128.23 (mL/min/1.73m2); Glucose 96 mg/dL (74-106); Potassium 3.7 mmol/L (3.5-5.1); Sodium 141 mmol/L (136-145); Total Protein 6.4 g/dL (6.4-8.2)
[2025-06-19 07:07] LABS: Iron 114 ug/dL (50-170); Total Iron Binding Capacity 286 ug/dL (250-450); Transferrin Sat 40 % (15-50)
--- NOTE | 2025-06-19 08:22 | SCONE_ITS ---
Date of service: 06/19/25 Time of Service: 08:22 Assessment and Plan Assessment and plan (1) GI bleed: Status: Acute Assessment and plan: 40-year-old woman with acute blood loss anemia secondary to GI bleeding that is probably from the foregut. Considering the clinical history leading up to this and her symptoms probably a stomach ulcer or duodenal ulcer is the most likely explanation. She is hemodynamically stable. She does not require any transfusion at the given moment in time. Colonoscopy is not indicated. Upper endoscopy within the first 24 hours of admission is reasonable from a diagnostic standpoint though likely to have a limited therapeutic role if any. Management is medical: Transfuse as needed for hemoglobin less than 7 and/or hemodynamic instability PPI therapy Stop taking Aleve Discharge home once hemoglobin stabilizes History of Present Illness Narrative: 40-year-old woman has been having gnawing abdominal pain and spasm in the upper part of her abdomen for about 2 or 3 days. She has been taking Aleve for about a month or so on a regular basis because she is having teeth pain. She is on Suboxone and relays that is being part of the reason she thinks she needs stronger pain medicine for her teeth pain. She also takes Tylenol. Yesterday she got up from sleeping and felt lightheaded. She went to the bathroom and had a large bowel movement that had blood mixed in it and she then passed out and fell off the toilet. She has had a couple more bowel movements since then with blood in them. Today at the bedside however she is feeling more or less back to normal. Still has the gnawing sensation inside of her. She has not required transfusion but was found to be acutely anemic in the emergency department. She was admitted for observation. She has never had a colonoscopy. She has never had this happen before. Intra- abdominal surgical history significant for gallbladder removal. [facility] All Active Problems (Updated 06/19/25 @ 08:55 by Zafar Garay MD) Anemia (Chronic) Abdominal pain (Acute) Abnormal QRL-vg-qrpwumwefe ratio (Acute) Nausea (Acute) Syncope (Chronic) GI bleed (Acute) Right carpal tunnel syndrome (Acute) Attention deficit disorder (Acute) Family problems (Acute) Abnormal immunological finding in specimen from female genital organ (Acute) Paresthesia (Acute) Fatigue (Acute) Acne (Acute) Amenorrhea (Acute) Periapical abscess (Acute) Insomnia (Acute) Opioid dependence (Acute) Anxiety (Chronic) Obesity (Chronic) Medical History Anemia FH: cholecystectomy Surgical History History of cholecystectomy Hx of appendectomy Dilation and curettage Family History (Updated 06/18/25 @ 22:24 by Naun Sloan MD) Father Hypertension Maternal Grandmother Heart disease Maternal Grandfather Diabetes Other FH: cholecystectomy Social History Smoking/Tobacco Use Status: Never Smoking risk assessment performed?: Yes Alcohol Intake: never Drug use: Current Sobriety Substance use type: does not use and marijuana Details: methadone 10mg last week Housing: apartment Do you feel safe at home: Yes Do you feel safe in your relationship?: Yes Female Reproductive History Menstrual Age of Menarche: 14 control method: none History Past Pregnancies Del. Date GA/Weeks # Preg Succ Route Wgt Sex Labor Lgth Anesth esia Location Prov Complic Unknown No Yes vaginal 7 lb 11 oz Female Exam Narrative Exam Narrative: Gen: Non-toxic, comfortable and interactive. Her vital signs are within normal limits. Neuro: Alert and oriented x3. Psych: Good mood and affect. Good insight and understanding into condition. Chest: Non-labored breathing, no wheezing, no visible shortness of breath. Heart: Regular. Abdomen: Soft, obese, no significant tenderness to examination and no distention. Results Last Vital Signs Temp 97.5 F L 06/19/25 07:17 Pulse 77 06/19/25 07:17 Resp 16 06/19/25 07:17 BP 126/77 06/19/25 07:17 Pulse Ox 99 06/19/25 07:17 Labs 06/19/25 06:32 06/19/25 06:32 Labs: Laboratory Results - last 24 hr 06/18/25 06/18/25 06/19/25 22:50 23:00 06:32 WBC 10.35 7.51 RBC 3.38 L 2.93 L Hgb 9.9 L 8.6 L Hct 29.3 L 25.4 L MCV 87 87 MCH 29.3 29.4 MCHC 33.8 33.9 RDW 13.1 13.2 Plt Count 344 258 MPV 9.2 8.9 Reticulocyte % (Auto) 3.1 H Immature Gran % 0.5 0.3 Neutrophils % 71.7 53.5 Lymphocytes % 23.7 40.5 Monocytes % 3.9 5.5 Eosinophils % 0.0 0.1 Basophils % 0.2 0.1 Nucleated RBC % 0.0 0.0 Absolute Neutrophils 7.43 H 4.02 Absolute Lymphocytes 2.45 3.04 Absolute Monocytes 0.40 0.41 Absolute Eosinophils 0.00 0.01 Absolute Basophils 0.02 0.01 PT 9.7 INR 1.0 APTT 21.9 VBG pH 7.35 VBG pCO2 48 VBG pO2 31 VBG HCO3 27 VBG Total CO2 25 VBG O2 Saturation 58 VBG Base Excess 1 VBG Lactate 1.7 Sodium 139 141 Potassium 3.8 3.7 Chloride 102 104 Carbon Dioxide 27.6 29.1 Anion Gap 9.4 7.9 BUN 31 H 26 H Creatinine 0.6 0.4 L Est GFR (CKD-EPI 2020) 116.30 128.23 Glucose 131 H 96 Calcium 8.2 L 7.8 L Iron 114 TIBC 286 Transferrin % Sat 40 Total Bilirubin 0.3 0.2 AST 16 14 L ALT 32 28 Alkaline Phosphatase 58 43 L Total Protein 7.2 6.4 Albumin 3.8 3.2 L Urine Color Yellow Urine Clarity Clear Urine pH 6.0 Ur Specific [place] 1.015 Urine Protein Negative Urine Ketones Trace H Urine Blood Negative Urine Nitrite Negative Urine Bilirubin Negative Urine Urobilinogen 0.2 Ur Leukocyte Esterase Negative Urine Glucose Negative Urine HCG, Qual Negative ABO/Rh B Negative Antibody Screen NEGATIVE
--- NOTE | 2025-06-19 08:37 | PDOC.CMIN ---
Date of service: 06/19/25 Time of Service: 08:38 Care Management Initial Assmt Initial Assessment Reason for Hospitalization: GI Bleed Functional Status/Living Situation Patient Presentation: Christina was sitting up in bed visiting with a friend when CM met with her. She had just returned from having her endoscopy but was alert and oriented and engaged well with CM. Christina was admitted with a GI bleed, possibly related to a recent increase in NSAID usage. She had a syncopal episode at home and her H&H decreased overnight. She had questions about whether or not she will be able to go home tonight but there is no available documentation in the chart to determine that. The surgeon did write this morning that she could be discharged when her H&H stabilized. Christina lives in an apartment in [facility] with her boyfriend. 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 Christina has one child, a daughter who lives independently. Christina did share that they had 2 dogs and now have an additional 7 pit bull/terrier puppies that are 2 weeks old. She noted that they are cute, but also a lot of work. Town of Residence: [facility] Resides with: Other (boyfriengigi Martinez) Significant Other/Family: Local Employment Status: Unemployed Instrumental Activities of Daily Living (ADLs): Independent Medications Medication Management: No Issues/Barriers identified Physical Functioning/Mobility Assistive Device: none Advance Directives Advance Directives: Do you have an Advance Directive: N 08/08/24, 11:21 AD On File at [facility]: N 08/08/24, 11:21 Date Asked 06/18/25 06/18/25, 22:22 AD Date Reviewed COLST On File at [facility] COLST Date Scanned Code Status Resuscitation Status Full Code Portal Pt does not currently have a portal and education provided: Yes Insurance Coverage/Financial Issues Insurance: Medicaid Care Team Visit Care Team Role Provider Type Duarte Mead MD MD [facility] STAFF PHYSICIAN Ary Prahdan Primary Care Provider NON-[facility] STAFF PHYSICIAN Zafar Garay MD Other Providers [facility] STAFF PHYSICIAN Stella Bain Other Providers OTHER Naun Sloan MD Emergency Provider [facility] STAFF PHYSICIAN Naun Nair MD Admit Provider [facility] STAFF PHYSICIAN Attending Provider Discharge Potential Discharge Needs: PCP F/U Appt Anticipated Barriers to Discharge: None Identified Patient/Family Education Needs: Review discharge instructions, discuss Ask Me Three Transportation: Private vehicle Plan: Anticipate Christina will be discharged home with no new services when medically ready. She will follow up with her community providers and plan of care and transport with a friend/family member. CM will follow and continue to assess for discharge needs. Social Determinants of Health Screening Social Determinants of health last assessed in clinic: 06/20/25 Will the Patient Participate in the Screening?: Yes Do you worry about having a steady place to live?: yes What is your living situation today?: I have housing today, but am worried about losing it Problems where you live: no known problems In the past 12 months, have you had to go without electric, gas, oil or water in your home?: no 1. Within the past 12 months, we worried whether our food would run out before we got money to buy more.: Never true 2. Within the past 12 months, the food we bought just didn't last and we didn't have money to get more.: Never true Has lack of transportation kept you from medical appointments or from doing things needed for daily living?: no Has anyone in your life made you feel unsafe or unsupported?: no How hard is it for you to pay for the very basics like food, housing, medical care, and heating? Would you say it is:: Not hard at all Do you want help finding or keeping work or a job?: I do not need or want help If for any reason you need help with day-to-day activities such as bathing, preparing meals, shopping, managing finances, etc., do you get the help you need?: I don?t need any help How often do you feel lonely or isolated from those around you?: Never Do you speak a language other than Sami at home?: Yes Does the patient want assistance with any of the above?: No Health Related Social Needs Health related social needs: housing instability, housed, with risk of homelessness (Z59.811) and education (Z55.6) Health related social needs details: n/a PFSH All Active Problems (Updated 06/19/25 @ 08:55 by Zafar Garay MD) Anemia (Chronic) Abdominal pain (Acute) Abnormal LBO-mp-asrhsxmcju ratio (Acute) Nausea (Acute) Syncope (Chronic) GI bleed (Acute) Right carpal tunnel syndrome (Acute) Attention deficit disorder (Acute) Family problems (Acute) Abnormal immunological finding in specimen from female genital organ (Acute) Paresthesia (Acute) Fatigue (Acute) Acne (Acute) Amenorrhea (Acute) Periapical abscess (Acute) Insomnia (Acute) Opioid dependence (Acute) Anxiety (Chronic) Obesity (Chronic) Medical History Anemia FH: cholecystectomy Surgical History History of cholecystectomy Hx of appendectomy Dilation and curettage Family History (Updated 06/18/25 @ 22:24 by Naun Sloan MD) Father Hypertension Maternal Grandmother Heart disease Maternal Grandfather Diabetes Other FH: cholecystectomy Social History Smoking/Tobacco Use Status: Never Smoking risk assessment performed?: Yes Alcohol Intake: never Drug use: Current Sobriety Substance use type: does not use and marijuana Details: methadone 10mg last week Housing: apartment Do you feel safe at home: Yes Do you feel safe in your relationship?: Yes Female Reproductive History Menstrual Age of Menarche: 14 control method: none History Past Pregnancies Del. Date GA/Weeks # Preg Succ Route Wgt Sex Labor Lgth Anesthesia Location Prov Complic Unknown No Yes vaginal 3486.991 g Female
[2025-06-19] MEDS: Buprenorphine/Naloxone 12 mg/3 mg FILM 1 EACH SL (09:07)
--- NOTE | 2025-06-19 09:10 | PT.INIE ---
PT Notes Visit Reasons: [facility] Physical Therapy Inpatient Initial Evaluation Date: 06/19/2025 Referring Doctor: Naun Nair MD PT Orders: PT CONSULT: Eval/Treat Precautions: Fall. Standard. Activity as tolerated. Patient Profile/Admitting Diagnosis: Christina is a 40-year-old female who presented to the ED on 06/18/2025 d/t near syncopal epsiode, bloody stools x 2 episode, nausea, mld abdominal pain. Patient was admitted under observation level of care for management of nausea and abdominal pain, GI bleed, abnormal BUN-creatinine ration, and anemia. PMHX: All Active Problems (Updated 06/19/25 @ 00:39 by Naun Nair MD) Anemia (Chronic) Abdominal pain (Acute) Abnormal QPI-mu-xhkpfgfmct ratio (Acute) Nausea (Acute) Syncope (Chronic) GI bleed (Chronic) Right carpal tunnel syndrome (Acute) Attention deficit disorder (Acute) Family problems (Acute) Abnormal immunological finding in specimen from female genital organ (Acute) Paresthesia (Acute) Fatigue (Acute) Acne (Acute) Amenorrhea (Acute) Periapical abscess (Acute) Insomnia (Acute) Opioid dependence (Acute) Anxiety (Chronic) Obesity (Chronic) Medical History Anemia FH: cholecystectomy Surgical History History of cholecystectomy Hx of appendectomy Dilation and curettage Social History/Home Situation: Lives with her SO in a apartment building with an elevator. Independent with all aspects of ADLs prior to admission. Equipment Owned/DME: None Subjective: Complained 6-7/10 cramping pain in epigastric region at rest that did not worsen with activity. Mildly lightheaded but was able to complete today's assessment. Objective: General Observation: patient seated on bedside chair with nurse LIZ and her nurse student providing medications. IV throughL UE. Telemetry monitoring on. Mental Status: Alert and oriented as to person, place, time, and purpose. Able to pay attention, focus, and respond appropriately. Pain: As above Vital Signs: Closely monitored by nursing staff ROM: Right Upper Extremity: Gross WFL Left Upper Extremity: Gross WFL Right Lower Extremity: Gross WFL Left Lower Extremity: Gross WFL Strength: Right Upper Extremity: Grossly 4/5 Left Upper Extremity: Grossly 4/5 Right Lower Extremity: Grossly 4/5 Left Lower Extremity: Grossly 4/5 Bed Mobility/Transfers: Sit to stand supervision Stand to sit supervision Bed to reclining chair supervision Gait: Supervised patient with level surface ambulation of about 200 feet using no assistive device, with cueing only for directions. No AD. No LOB. No SOB. Complaine do fmild lightheadedness that did not limit today's activity. Gait pattern unremarkable with subjective report of slight decrease in speed. Stairs: Not tested Balance: Static Sitting: Normal Dynamic Sitting: Normal Static Standing: Normal Dynamic Standing: Good Special Tests: Mobility Limitations Standardized Measure [facility] AM-PAC 6 clicks Basic Mobility Inpatient Short Form: Raw Score: 22 CMS Score: 21% deficit Informed Consent/Education: Patient was instructed in purpose of PT consult. Assessment: Patient completed mobility performance without an assistive device with no report of increased lightheadedness nor abdominal pain. No PT services are warranted at this time. Patient has not had any solid meal since karyn or so ago and may have contributed to her generalized weakness and lightheadedness. Patient's resolution of her medical issue will facilitate retrun to patient's premorbid ability for Adl performance completion time. Patient presents with clinical signs and symptoms consistent with current/admitting diagnoses that have resulted to: 1. Generalized weakness 2. Continued cramping pain in epsigastric region Impairments are contributing to the following functional limitations: 1. Increased completion time for mobility ADL performance Patient is assessed as a 83927 low complexity based on the following: History: 40-year-old female with past medical history as indicated above Examination: Demonstrable impairment in strength, balance, and mobility level with underlying impairments and functional limitations as exhibited above as well as deficit score of 21% deficit utilizing the [facility] Mobility Inpatient Short Form Presentation: Stable Decision Makin low complexity Goals: N/A. PT evalaution only. Plan of Care/Treatment Plan: N/A. PT evalaution only. DISCHARGE RECOMMENDATIONS: Home when medically cleared by hospitalist. No equipment needed. TREATMENT CODE/TIME: 63524 x 15 minutes for 1 unit (9:10-9:25). Thank you for the opportunity to participate in the care of this patient. Sarah Ferrari PT, DPT, CLT [facility] [place], [place]
--- NOTE | 2025-06-19 10:59 | PHA.REVIEW2 ---
Pharmacy Admission Review Admission Clinical Review Admission Pharmacy Review: Abdominal pain (Acute) Abnormal KWO-br-ppcbenrwdz ratio (Acute) Nausea (Acute) GI bleed (Acute) doxycycline Allergy (Mild, Verified 06/18/25 22:28) vomiting Resuscitation Status Full Code Height 5 ft 7 in Weight 111.13 kg Pharmacy Admission Review Renal Dosing Renal Dosing: BUN 26 mg/dL (7-18) H 06/19/25 06:32 Creatinine 0.4 mg/dL (0.55-1.02) L 06/19/25 06:32 Medications needing adjustments: Reviewed (CrCl 240.28 mL/min) List of meds needing interventions: Current medications are okay Anticoagulation Anticoagulation: Hgb 8.6 g/dL (11.2-15.7) L 06/19/25 06:32 Hct 25.4 % (36.0-46.0) L 06/19/25 06:32 Plt Count 258 10^3/uL (130-400) 06/19/25 06:32 INR 1.0 (0.9-1.1) 06/18/25 22:50 Creatinine 0.4 mg/dL (0.55-1.02) L 06/19/25 06:32 DVT Prophylaxis: Reviewed (SCDs - GI bleed, OR today) Relevant Labs Relevant Labs: Sodium 141 mmol/L (136-145) 06/19/25 06:32 Potassium 3.7 mmol/L (3.5-5.1) 06/19/25 06:32 Chloride 104 mmol/L (98-107) 06/19/25 06:32 Electrolytes, C-Reactive P, ESR: Reviewed Cardiac Review BP, HR, EF%: Reviewed (BP and HR WNL) QTc Review QTc: Reviewed (417 from 06/18/25) IV to PO Switch IV Medications: Reviewed (ondansetron and pantoprazole - NPO for procedure today) Home Meds Home Med List reviewed: Intervened Relevent Home Meds Not ordered & why?: Narcan (PRN) Patient has Adderall Xr 30mg daily and 10mg at noon on home med list. Order was put in for morning dose but not noon dose. Per provider doesn't need right now. Has Suboxone on home med list, per [facility] last fill 10/28/24 4mg daily for 7 day supply. Informed provider. Nurse is asking patient where she fills, waiting to hear back and will inform provider. Current Meds Current Medication Order Review: Intervened Comments: Had order for pantoprazole infusion and then a pantoprazole IVP BID order that was left pending by overnight pharmacy. Per provider discontinue infusion and verify IVP BID. Put in for start time of 1100, provider wanted patient to receive a morning dose.
[2025-06-19] MEDS: Normal Saline Flush 10 ML SYR IVP ×3 (11:02→20:11)
[2025-06-19] MEDS: Pantoprazole 40 MG VIAL IVP ×2 (11:03→20:11)
--- NOTE | 2025-06-19 11:32 | W.ANESPRE ---
General Info Date of Service Date Performed: 06/19/25 Height: 5 ft 7 in Weight: 111.13 kg Body Mass Index (BMI): 38.3 Surgical Procedure: Operation Date: 06/19/25 11:35 Proposed Procedure Side Surgeon p Gastroscopy Zafar Garay MD Meds Allergies and Home Medications Allergies Allergy/AdvReac Type Severity Reaction Status Date / Time doxycycline Allergy Mild vomiting Verified 06/18/25 22:28 Home Medication ?Medication ?Instructions ?Recorded naloxone 4 mg/actuation nasal 1 spray intranasal Q2M 11/23/24 spray (Narcan) zolpidem 10 mg tablet 10 mg PO QHS PRN 11/23/24 buprenorphine 12 mg-naloxone 3 mg 1 film buccal Q24H 03/01/25 sublingual film (Suboxone) dextroamphetamine-amphetamine ER 10 mg PO .noon 06/19/25 10 mg 24hr capsule,extend release dextroamphetamine-amphetamine ER 30 mg PO DAILY 06/19/25 30 mg 24hr capsule,extend release Current Visit Medications: Current Medications Generic Name Dose Route Start Last Admin Trade Name Freq PRN Reason Stop Dose Admin Al Hydrox/Mg Hydrox/Simethicone 30 ml 06/19/25 00:20 Mylanta Suspension 30 Ml Cup PO Q2H PRN PRN Amphetamine Aspartate/Amphetam Sulf 30 mg 06/19/25 08:30 06/19/25 09:08 Amphet Asp/Amphet/D-Amphet 10mg Capcr PO 30 mg DAILY BETTIE Administration Buprenorphine/Naloxone 1 each 06/19/25 08:30 06/19/25 09:07 Buprenorphine/Naloxone 12 Mg/3 Mg Film SL 1 each DAILY BETTIE Administration Docusate Sodium 100 mg 06/19/25 00:20 Docusate Sodium 100 Mg Cap PO TID PRN PRN Ringer's Solution 1,000 mls @ 125 mls/hr 06/19/25 00:30 06/19/25 09:15 IV 125 mls/hr INFUSION BETTIE Administration IV Miscellaneous Supplies 1 each 06/18/25 22:45 Iv Access IV DIRECTED BETTIE Magnesium Hydroxide 30 ml 06/19/25 00:20 Milk Of Magnesia 30 Ml Cup PO DAILY PRN PRN Ondansetron HCl 4 mg 06/19/25 00:41 06/19/25 01:23 Ondansetron 4 Mg/2 Ml Vial IVP 4 mg Q6H PRN PRN Administration Pantoprazole Sodium 40 mg 06/19/25 11:00 06/19/25 11:03 Pantoprazole 40 Mg Vial IVP 40 mg BID BETTIE Administration Polyethylene Glycol 17 gm 06/19/25 00:20 Polyethylene Glycol 3350 17 Gm Packet PO DAILY PRN PRN Constipation Sodium Chloride 0 ml 06/18/25 22:42 06/19/25 11:02 Normal Saline Flush 10 Ml Syr IVP 30 ml PRN PRN Administration Sodium Chloride 0 ml 06/19/25 08:30 06/19/25 09:08 Normal Saline Flush 10 Ml Syr IVP Not Given BID BETTIE Sodium Chloride 0 ml 06/18/25 22:42 Normal Saline 10 Ml Vial IJ DIRECTED PRN Zolpidem Tartrate 10 mg 06/19/25 00:47 06/19/25 01:23 Zolpidem 10 Mg Tab PO 10 mg HS PRN PRN Administration PFSH Active Problems Active Problems: Problem Status Onset Code Anemia Chronic D64.9 Abdominal pain Acute R10.9 Abnormal FPQ-nb-axzpudmmoy ratio Acute R79.89 Nausea Acute R11.0 Syncope Chronic R55 GI bleed Acute K92.2 Right carpal tunnel syndrome Acute G56.01 Attention deficit disorder Acute F98.8 Family problems Acute Z63.9 Abnormal immunological finding in specimen from female genital organ Acute R87.4 Paresthesia Acute R20.2 Fatigue Acute R53.83 Acne Acute L70.9 Amenorrhea Acute N91.2 Periapical abscess Acute K04.7 Insomnia Acute G47.00 Opioid dependence Acute F11.20 Anxiety Chronic F41.9 Obesity Chronic E66.9 Medical History Medical History Anemia FH: cholecystectomy Surgical History Surgical History History of cholecystectomy Hx of appendectomy Dilation and curettage Tobacco Smoking/Tobacco Use Status: Never Passive smoking exposure: Yes Alcohol Alcohol Intake: never Substance Use Substance use: Current Sobriety Substance use type: does not use and marijuana Details: methadone 10mg last week Prental History Past Pregnancies Del. Date GA/Weeks # Preg Succ Route Wgt Sex Labor Lgth Anesthesia Location Prov Complic Unknown No Yes vaginal 3486.991 g Female Vital Signs and Lab Results Vital Signs Most Recent Vital Signs in EMR: Most Recent Vital Signs Temp Pulse Resp BP Pulse Ox 36.4 C L 77 16 126/77 99 06/19/25 07:17 06/19/25 07:17 06/19/25 07:17 06/19/25 07:17 06/19/25 07:17 Point of Care Results Point of Care Results: POC- Test(urine) Negative 06/18/25 23:04 Lab Results 06/19/25 06:32 06/19/25 06:32 Blood Type / Crossmatch: Antibody Screen NEGATIVE 06/18/25 Complete Blood Count: WBC, (4.4-10.8) 7.51 10^3/uL Today, 06:32 RBC, (3.93-5.22) 2.93 10^6/uL L Today, 06:32 Hgb, (11.2-15.7) 8.6 g/dL L Today, 06:32 Hct, (36.0-46.0) 25.4 % L Today, 06:32 Plt Count, (130-400) 258 10^3/uL Today, 06:32 VBG Lactate, (<or=2.0) 1.7 mmol/L 06/18/25, 22:50 Complete Metabolic Panel: Sodium, (136-145) 141 mmol/L Today, 06:32 Potassium, (3.5-5.1) 3.7 mmol/L Today, 06:32 Chloride, (98-107) 104 mmol/L Today, 06:32 Carbon Dioxide, (21.0-32.0) 29.1 mmol/L Today, 06:32 BUN, (7-18) 26 mg/dL H Today, 06:32 Creatinine, (0.55-1.02) 0.4 mg/dL L Today, 06:32 Est GFR (CKD-EPI 2020), (mL/min/1.73m2) 128.23 Today, 06:32 Calcium, (8.5-10.1) 7.8 mg/dL L Today, 06:32 Albumin, (3.4-5.0) 3.2 g/dL L Today, 06:32 Glucose, (74-106) 96 mg/dL Today, 06:32 Liver Function Panel: ALT, (14-59) 28 U/L Today, 06:32 AST, (15-37) 14 U/L L Today, 06:32 Coagulation Panel: INR, (0.9-1.1) 1.0 06/18/25, 22:50 PT, (9.1-11.1) 9.7 sec 06/18/25, 22:50 APTT, (20.6-30.2) 21.9 sec 06/18/25, 22:50 Venous Blood Gas: VBG pH, (7.31-7.41) 7.35 06/18/25, 22:50 VBG pO2 31 mmHg 06/18/25, 22:50 VBG pCO2, (41-51) 48 mmHg 06/18/25, 22:50 VBG O2 Saturation 58 % 06/18/25, 22:50 VBG HCO3, (23-28) 27 mmol/L 06/18/25, 22:50 VBG Base Excess, (-2-3) 1 mmol/L 06/18/25, 22:50 VBG Total CO2, (24-29) 25 mmol/L 06/18/25, 22:50 Panel: Urine HCG, Qual Negative 06/18/25, 23:00 Imaging and Studies Imaging and Studies Study information below may be from another EMR and interpreted by another provider. Please see original notes in EMR for more complete details. EKG Summary: EKG PATIENT NAME: Christina Segal UNIT #: [id number] ORDERING PROVIDER: Lyle Gaytan M.D. PRIMARY CARE PROVIDER: RIO PATEL DATE/TIME OF SERVICE: 06/18/252225 : 1985 PERFORMING LOCATION: ER APPROVED REPORT Exam: Resting ECG Reason for Exam: lightheaded, passed out Patient Location: E HR:89 bpm ECG Measurements Heart Rate 89 AXIS OR 141 P 50 QRSd 70 QRS 42 QT 342 T36 QTc 417 Conclusion Sinus rhythm...normal P axis, V-rate 60- 99 Normal Electrocardiogram <Electronically signed by LYLE GAYTAN MD in OV> E-Sign Date: 06/18/25 E-Sign Time: 2732 Anesthesia Assessment and Plan Anesthesia History Personal History: No History of Anesthesia Complications Family History: No Family History of Anesthesia Complications Exercise Tolerance Exercise Tolerance: Metabolic Equivalents>4 Pertinent Negatives Pertinent Negatives: No Major Cardiovascular Symptoms or Complaints, No Major Pulmonary Symptoms or Complaints and No History of CVA/TIA Cardiac & Pulmonary Exam Cardiac Exam: Normal S1/S2 Heart Sounds Pulmonary Exam: Clear Bilateral Breath Sounds Implantable Cardiac Device Does patient have a Pacemaker or an ICD?: No Airway Exam Known Difficult Airway: No Mallampati Class: 2 Mouth Opening: Normal (> 3cm) Thyromental Distance: Greater than 3 cm Neck Range of Motion: Full ROM Neck Circumference: Normal Teeth Condition: Normal Dentition Tooth Numbering:  1. Broken tooth Airway Comments: Two teeth missing ASA Classification ASA Score: ASA 2 Emergency Case?: No NPO Status NPO Status: NPO Clears >2 hours, Solids >8 hours Status Status: Negative HCG Anesthesia Plan Resuscitation Status: Full Code Anesthesia Technique: General Anesthesia Airway Planned: Natural Airway Monitors Used: Standard Monitors
--- NOTE | 2025-06-19 12:19 | W.PM.ENDDOP ---
Date of service: 06/19/25 Time of Service: 12:19 Endoscopy Report PROCEDURE DESCRIPTION: PROCEDURES PERFORMED: 1. EGD with biopsies PREOPERATIVE DIAGNOSIS: gi bleed, stomach ulcers POSTOPERATIVE DIAGNOSIS: same SURGEON: Kavin Garay MD INDICATION FOR PROCEDURE: 40 yo woman with acute blood loss anemia and visible blood in stools as well as epigastric pain for 2 days in setting of taking Alleve for the last 4-6 weeks. FINDINGS: 2 antral ulcers present with associated blood clots laying in the stomach. Not actively bleeding. D2/D3 = normal D1/bulb = normal Pylorus = normal Antrum = 2 antral ulcers present (Bryan iic - larger one, the other is stage iii), cold forceps biopsies were taken to rule out H. pylori routinely Body = normal appearance, biopsies taken with cold forceps technique routinely Fundus = normal, no polyps Cardia = normal Hiatus = Tiny (<1cm) sliding hiatal hernia but w/ AFS grade 1 hiatus (intact flap valve). Distal esophagus = no inflammation, no esophagitis, no Terrell's, no stricture. I did not take biopsies here. Mid esophagus = normal Proximal esophagus/hypopharynx/vocal cords = normal SURVEILLANCE-INTERVAL/FOLLOW-UP: Stop Alleve, take PPI, Follow-up with PCP, consider repeat EGD in ~3 months to ensure complete resolution. Specimens: Yes EBL: Minimal COMPLICATIONS: None Procedure in detail: The patient gave written consent and was in agreement with the indications, the potential risks as well as the benefits of the procedure. The patient was taken to the endoscopy suite and laid on their left side. Anesthesia was given which was tolerated well. We performed a timeout and we are in agreement I started the procedure. A well-lubricated endoscope was gently and carefully advanced down the esophagus, into the stomach and through the pylorus into the duodenum. The scope was then slowly withdrawn with the above-noted findings/interventions. The patient tolerated the procedure well.
--- NOTE | 2025-06-19 12:28 | W.ANESPOSTOP ---
Postoperative Evaluation Date, Time and Location Date Performed: 06/19/25 Time Performed: 12:28 Patient Location: PACU Vital Signs Most Recent Imported Vital Signs: Most Recent Vital Signs Temp Pulse Resp BP Pulse Ox 36.9 C 99 H 13 152/88 H 98 06/19/25 12:21 06/19/25 12:21 06/19/25 12:25 06/19/25 12:21 06/19/25 12:21 Pain Score Most Recent Pain Score: Most Recent Pain Score Pain Level [Generalized] 0 06/19/25 08:27 Pain Level 6 06/19/25 01:40 Assessment Mental Status: Awake (Alert & Oriented to Patient Baseline) Airway and Respiratory Function: Patent airway with normal (patient baseline) respiratory exam Cardiovascular Function: Hemodynamically Stable Hydration Status: Adequately Hydrated Nausea & Vomiting: No Nausea or Vomiting Pain: Pt. Denies Any Pain Peripheral Nerve Block: Patient did not receive a nerve block
[2025-06-19 14:24] LABS: HCT 24.2 % (36.0-46.0); HGB 8.1 g/dL (11.2-15.7)
[2025-06-19] MEDS: Acetaminophen 500 MG TAB 1000 MG PO (18:27)
--- NOTE | 2025-06-19 19:01 | W.NUTRFU ---
Date of service: 06/19/25 Time of Service: 14:00 Nutrition Note NOTE: visited briefly with Christina and a friend visiting as well. tolerating clear liquid diet at lunch today. Reported BM this morning with significant amount of blood. Christina denies recent concerns with intake (Although she is interested in weight loss). Good intake. Currently assessed as lower acute nutrition risk. Will see how diet advancement goes and provide clear liquid protein supp if extended on clears. Gave patient and her friend my card for outpatient services as they were interested. Will continue to monitor intake, nutrition related labs, diet advancement/toleration, desire for nutrition education Time Spent in Nutritional Counseling and Treatment: 5 min
[2025-06-20] MEDS: Ondansetron 4 MG/2 ML VIAL IVP ×2 (01:31→07:49)
[2025-06-20] MEDS: Lactated Ringers 1,000 ML 125 ML IV (01:32)
[2025-06-20 07:22] VITALS: BP 137/93; PULSE 75; RESP 16; TEMP 36.3; O2SAT 99
[2025-06-20] MEDS: Buprenorphine/Naloxone 12 mg/3 mg FILM 1 EACH SL (07:49)
[2025-06-20] MEDS: Normal Saline Flush 10 ML SYR IVP (07:49)
[2025-06-20] MEDS: Pantoprazole 40 MG VIAL IVP (07:49)
[2025-06-20] MEDS: Buprenorphine/Naloxone 2 mg/0.5 mg FILM 3 EACH SL (08:13)
--- NOTE | 2025-06-20 09:27 | PDOC.CMDIS ---
Date of service: 06/20/25 Time of Service: 09:27 LACE Index Scoring Tool Questions: Length of Stay (in days): 1 Was the patient admitted via the E.D.?: Yes E.D. Visits: 1 Answers: Total Score: 5 Risk of Readmission: Low Risk Care Management Discharge Plan Reason for Hospitalization: GI Bleed Discharge Plan: Christina will be discharged home with no new services. She will follow up with her community providers and plan of care and transport with a friend. Patient/Family Education Needs: Review discharge instructions, limitations, follow up plan and discuss Ask Me Three SDOH Health Related Social Needs: Health related social needs risk of homeless education Health related social needs details n/a Health related social needs details: n/a Referrals and interventions: n/a
[2025-06-20 09:48] LABS: HCT 24.1 % (36.0-46.0); HGB 8.0 g/dL (11.2-15.7); MCH 29.2 pg (27.0-33.0); MCHC 33.2 % (32.0-36.0); MCV 88 fL (80-95); MPV 8.4 fL (8.0-11.0); Platelet Count 220 10^3/uL (130-400); RBC 2.74 10^6/uL (3.93-5.22); RDW 13.7 % (11.7-14.6); RDW-SD 42.5 fL; WBC 5.31 10^3/uL (4.4-10.8)
--- NOTE | 2025-06-20 09:58 | W.PM.DS.N ---
Date of service: 06/20/25 Time of Service: 09:58 DS: Diagnosis Discharge Diagnosis (1) GI bleed: Status: Acute Discharge Plan Disposition Patient Disposition: Home Condition: Good Discharge Details Reason For Visit: GIB Admit Date/Time: 06/19/25 00:20 Admit Provider: Naun Nair Attending Provider: Naun Nair Primary Care Provider: Ary Pradhan [facility] Course Hospital Course: Patient initially presented with concerns for bloody bowel movements found to have upper GI bleed after endoscopy showed 2 nonbleeding large gastric ulcers. This was likely caused by patient taking high doses of NSAIDs for mouth pain for which she is going to have a rescheduled dental appointment. Patient's hemoglobin did decrease, but leveled out at about 8 on the morning of discharge. Additionally, patient did not have any additional episodes of bloody or dark bowel movements while hospitalized. Given that patient is no longer bleeding, her hemoglobin leveled out, her symptoms have improved and is determined that she was stable for discharge home and recommended to stay away from using NSAIDs and to use Tylenol for her pain. Home Meds and New Rx's Prescriptions: New pantoprazole [Protonix] 40 mg tablet,delayed release (DR/EC) 40 mg PO BID Qty: 90 0RF Continued buprenorphine-naloxone [Suboxone] 12-3 mg film 1 film buccal Q24H Patient Comments: 18mg naloxone [Narcan] 4 mg/actuation spray,non-aerosol 1 spray intranasal Q2M Rx Instructions: spray 1 dose into ONE nostril; alternate nostrils w each dose until help arrives zolpidem 10 mg tablet 10 mg PO QHS PRN dextroamphetamine-amphetamine 30 mg capsule,extended release 24hr 30 mg PO DAILY Patient Comments: TAKE ONE CAPSULE BY MOUTH EVERY MORNING dextroamphetamine-amphetamine 10 mg capsule,extended release 24hr 10 mg PO .noon Patient Comments: TAKE ONE CAPSULE BY MOUTH EVERY DAY AT NOON Discharge Instructions Activity:: Activity as Tolerated Equipment/Supplies:: No Equipment Needed Diet:: As Tolerated Discharge Orders Discharge Orders: Discharge Order (Routine); Ordered 06/20/25 Ordered By: Duarte Mead DS: Summary Time Spent with Patient providing and/or coordinating discharge services: Greater than 30 minutes Status at Discharge Functional status at discharge: independent ambulation Overall status at discharge: patient is back to baseline Mental Status: mental status grossly normal Speech and Movement: speech and movement normal Mood: congruent mood Affect: normal affect Quality:SDOH Health Related Social Needs: Health related social needs risk of homeless education Health related social needs details n/a Health related social needs details: n/a Referrals and interventions: n/a Exam Narrative Exam Narrative: Well-appearing female sitting up in no acute distress, ANO x 4, heart regular rhythm, lungs good auscultation bilaterally, abdomen soft, nontender, nondistended Psych Mental Status: mental status grossly normal Speech and Movement: speech and movement normal Mood: congruent mood Affect: normal affect DS: Data Vitals/I&O Vitals and I&O: Vital Signs Temperature 97.3 F L 06/20/25 07:22 Temperature Source Temporal Artery Scan 06/20/25 07:22 Pulse 75 06/20/25 07:22 Pulse Rhythm Irregular 06/19/25 01:40 Pulse 94 H 06/19/25 12:25 Respiratory Rate 16 06/20/25 07:22 Respiratory Effort Normal, Non-Labored 06/19/25 01:40 Respiratory Depth Normal 06/19/25 01:40 Respiratory Pattern Irregular 06/19/25 01:40 Blood Pressure 137/93 H 06/20/25 07:22 Blood Pressure Mean 107 06/20/25 07:22 Pulse Oximetry 99 06/20/25 07:22 Respiratory End-tidal CO2 39 06/19/25 12:25 Oxygen Delivery Method Room Air 06/20/25 07:22 Oxygen Flow Rate 0 06/20/25 07:22 Pain Level 0 06/20/25 07:22 Comment RN in room 06/19/25 14:03 Intake & Output 06/19/25 06/20/25 06/20/25 17:59 05:59 17:59 Intake Total 2576.167 / 2576.167 979.167 / 3555.334 0 / 0 Output Total 1200 / 1200 800 / 2000 650 / 650 Balance 1376.167 / 1376.167 179.167 / 1555.334 -650 / -650 Weight 244 lb 15.995 oz 248 lb 7.375 oz Intake: IV 6.167 / 2096.167 979.167 / 3075.334 0 / 0 Oral 480 / 480 Output: Urine 1200 / 1200 800 / 2000 650 / 650 Other: Urine Color Yellow Yellow Yellow Urine Appearance Clear Clear Clear Urine Odor Normal Normal None Comment pt voids to toilet. Stool Size Moderate Stool Characteristics Liquid Bloody Emesis Description None Data Completed and Pending Labs on day of discharge: Labs from last 24 hours 06/20/25 06/20/25 06/19/25 09:40 06:50 14:15 WBC 5.31 Cancelled RBC 2.74 L Cancelled Hgb 8.0 L Cancelled 8.1 L Hct 24.1 L Cancelled 24.2 L MCV 88 Cancelled MCH 29.2 Cancelled MCHC 33.2 Cancelled RDW 13.7 Cancelled Plt Count 220 Cancelled MPV 8.4 Cancelled PFSH All Active Problems (Updated 06/20/25 @ 09:58 by Duarte Mead MD) Anemia (Chronic) Abdominal pain (Acute) Abnormal YQK-kn-spduzkbysk ratio (Acute) Nausea (Acute) Syncope (Chronic) GI bleed (Acute) Right carpal tunnel syndrome (Acute) Attention deficit disorder (Acute) Family problems (Acute) Abnormal immunological finding in specimen from female genital organ (Acute) Paresthesia (Acute) Fatigue (Acute) Acne (Acute) Amenorrhea (Acute) Periapical abscess (Acute) Insomnia (Acute) Opioid dependence (Acute) Anxiety (Chronic) Obesity (Chronic) Medical History Anemia FH: cholecystectomy Surgical History History of cholecystectomy Hx of appendectomy Dilation and curettage Family History (Updated 06/18/25 @ 22:24 by Naun Sloan MD) Father Hypertension Maternal Grandmother Heart disease Maternal Grandfather Diabetes Other FH: cholecystectomy Social History Smoking/Tobacco Use Status: Never Smoking risk assessment performed?: Yes Alcohol Intake: never Drug use: Current Sobriety Substance use type: does not use and marijuana Details: methadone 10mg last week Housing: apartment Do you feel safe at home: Yes Do you feel safe in your relationship?: Yes Female Reproductive History Menstrual Age of Menarche: 14 control method: none History Past Pregnancies Del. Date GA/Weeks # Preg Succ Route Wgt Sex Labor Lgth Anesthesia Location Prov Complic Unknown No Yes vaginal 7 lb 11 oz Female Time Spent with Patient Time Spent with Patient: <45 minutes Time was spent: preparing to see the patient(eg.review tests), obtaining and/or reviewing separately otained hiistory, ordering medications,tests, procedures, referring, communicating with other health senior resident care director, indepentently interpreting results, counseling the patient and care coordination
== END 2025-06-20 10:25 | disposition home or self-care (01) ==
LOC: ER 23:38 → MS 06-19 00:39
PROVIDERS: Student in an Organized Health Care Education/Training Program; Admitting Provider Hospitalist; Emergency Provider Emergency Medicine; PCP Family Medicine; Responsible Provider Family Medicine; Visit Provider Hospitalist
PROC: 0DJ68ZZ Inspection of Stomach, Via Natural or Artificial Opening Endoscopic (ICD-10-PCS; CPT 43235; principal; 2025-06-19 11:30)
DX: K25.4 Chronic or unspecified gastric ulcer with hemorrhage (principal); R55 Syncope and collapse; T39.395A Adverse effect of other nonsteroidal anti-inflammatory drugs [NSAID], initial encounter; R11.0 Nausea; D62 Acute posthemorrhagic anemia; R10.13 Epigastric pain; F11.20 Opioid dependence, uncomplicated; F41.9 Anxiety disorder, unspecified; E66.9 Obesity, unspecified; G47.00 Insomnia, unspecified; Z68.38 Body mass index [BMI] 38.0-38.9, adult; W19.XXXA Unspecified fall, initial encounter; F98.8 Other specified behavioral and emotional disorders with onset usually occurring in childhood and adolescence; Z59.811 Housing instability, housed, with risk of homelessness; K31.9 Disease of stomach and duodenum, unspecified
CPT/HCPCS: 43239; 00123; 36415; 80053; 81025; 82805; 85027; 86850; 86900; 86901; 88305; 93005; 96374; 97161; 99285; 81003; 83540; 83550; 83605; 85014; 85018; 85025; 85045; 85610; 85730; 93010; 99222; 99238; G0378; J2405; J2470; J2704

== ENCOUNTER 2025-07-10 10:05 | Emergency (ER) | payer MEDICAID, SELFPAY ==
--- NOTE | 2025-07-10 10:00 | RT.EKG_ITS ---
APPROVED REPORT Exam: Resting ECG Reason for Exam: Lightheadedness Patient Location: E HR:61 bpm ECG Measurements Heart Rate 61 AXIS OK 173 P 14 QRSd 74 QRS 33 QT 404 T 35 QTc 409 Conclusion Sinus rhythm...normal P axis, V-rate 60- 99
[2025-07-10 10:10] VITALS: BP 115/80; PULSE 63; RESP 18; TEMP 36.7; O2SAT 96
[2025-07-10 10:15] VITALS: BP 115/80; PULSE 63; RESP 18; TEMP 36.7; O2SAT 96
[2025-07-10] MEDS: Lactated Ringers 500 ML 1000 ML IV (11:18)
[2025-07-10 11:23] LABS: Abs Immature Grans 0.02 10^3/uL (0.0-0.06); HCT 28.5 % (36.0-46.0); HGB 9.0 g/dL (11.2-15.7); Immature Grans % 0.3 %; MCH 25.5 pg (27.0-33.0); MCHC 31.6 % (32.0-36.0); MCV 81 fL (80-95); MPV 8.7 fL (8.0-11.0); Platelet Count 437 10^3/uL (130-400); RBC 3.53 10^6/uL (3.93-5.22); RDW 15.2 % (11.7-14.6); RDW-SD 44.2 fL; WBC 5.81 10^3/uL (4.4-10.8)
[2025-07-10] MEDS: Ondansetron 4 MG/2 ML VIAL IVP (11:26)
[2025-07-10 11:43] LABS: ALT 30 U/L (14-59); AST 29 U/L (15-37); Albumin 4.2 g/dL (3.4-5.0); Alkaline Phosphatase 81 U/L (46-116); Anion Gap 9.4 mmol/L (3-11); BUN 12 mg/dL (7-18); Bilirubin, Total 0.3 mg/dL (0.2-1.0); CO2 27.6 mmol/L (21.0-32.0); Calcium 9.0 mg/dL (8.5-10.1); Chloride 100 mmol/L (98-107); Glucose 123 mg/dL (74-106); Lipase 40 U/L (<78); Magnesium 2.4 mg/dL (1.8-2.4); Potassium 3.8 mmol/L (3.5-5.1); Sodium 137 mmol/L (136-145); Total Protein 8.7 g/dL (6.4-8.2)
[2025-07-10 11:51] LABS: HCG Qual (Serum) Negative
[2025-07-10] MEDS: Normal Saline 50 ML 150 ML (12:18)
[2025-07-10] MEDS: Pantoprazole 40 MG VIAL IVP (12:18)
--- NOTE | 2025-07-10 13:52 | ED.GENADUL_ITS ---
Discharge Plan Disposition Patient Disposition: Home Condition: Stable Discharge Details Clinical Impression: Stomach ulcer Primary Care Provider: Ary Pradhan ED Provider: Donta Mccormick Home Meds and New Rx's Prescriptions: Continued buprenorphine-naloxone [Suboxone] 12-3 mg film 1 film buccal Q24H Patient Comments: 18mg naloxone [Narcan] 4 mg/actuation spray,non-aerosol 1 spray intranasal Q2M Rx Instructions: spray 1 dose into ONE nostril; alternate nostrils w each dose until help arrives zolpidem 10 mg tablet 10 mg PO QHS PRN dextroamphetamine-amphetamine 30 mg capsule,extended release 24hr 30 mg PO DAILY Patient Comments: TAKE ONE CAPSULE BY MOUTH EVERY MORNING dextroamphetamine-amphetamine 10 mg capsule,extended release 24hr 10 mg PO .noon Patient Comments: TAKE ONE CAPSULE BY MOUTH EVERY DAY AT NOON pantoprazole [Protonix] 40 mg tablet,delayed release (DR/EC) 40 mg PO BID Qty: 90 0RF ondansetron HCl 4 mg tablet 4 mg PO Q6H PRN PRNQty: 14 0RF No Action sucralfate 1 gram tablet 1 g PO QACHS Qty: 60 0RF Discharge Instructions Instructions: Gastric Ulcer ED Additional Instructions: Please continue to take your antiacid Protonix as prescribed. Please follow-up with your primary care physician. Please follow-up with general surgery this week. Continue to avoid NSAIDs like ibuprofen or Advil. Take sucralfate as prescribed by general surgery. Return to the emergency department immediately for any worsening or new concerning symptoms. Stand Alone Forms: Portal Information Referrals: GENERAL SURG,[facility] [OTHER, Surgery] Ary Pradhan [Primary Care Provider, Medicine] Ivan Salgado MD [ [facility] STAFF PHYSICIAN, Surgery] Discharge Data Discharge Date/Time-TO BE ENTERED AT DEPARTURE: 07/10/25 14:05 HPI General Mode of arrival: ambulatory . Date/Time Provider Initiated Documentation: 07/10/25 10:21 . Limitations to Documentation: no limitations . Information obtained by: patient . HPI Narrative: HISTORY OF PRESENT ILLNESS This is a 40-year-old female with a history of bleeding stomach presenting with dizziness. The patient reports experiencing dizziness and severe nausea for the past 2 days. She was admitted 2 weeks ago for a bleeding stomach ulcer, confirmed by endoscopy, and has been feeling lightheaded since then. She has not taken ibuprofen but has taken Tylenol for a day. She has not experienced any recent episodes of bloody stool since her discharge but notes the presence of black stool. She was diagnosed with anemia during her last visit, which did not necessitate a blood transfusion. She was hospitalized for 2 nights and reports that her energy levels have not yet returned to normal. She experienced an episode of vomiting last night and feels lightheaded when walking. She reports no swelling, vaginal bleeding, or abdominal pain. She is currently on an antacid medication, Protonix. Related Data Home Medications Medication Instructions Recorded Confirmed naloxone 4 mg/actuation nasal 1 spray intranasal Q2M 0 11/23/24 07/10/25 spray (Narcan) zolpidem 10 mg tablet 10 mg PO QHS PRN 11/23/24 buprenorphine 12 mg-naloxone 3 mg 1 film buccal Q24H 0 03/01/25 07/10/25 sublingual film (Suboxone) dextroamphetamine-amphetamine ER 10 mg PO .noon 07/10/25 10 mg 24hr capsule,extend release dextroamphetamine-amphetamine ER 30 mg PO DAILY 07/10/25 30 mg 24hr capsule,extend release ondansetron HCl 4 mg tablet 4 mg PO Q6H PRN PRN #14 ta bs 06/20/25 07/10/25 pantoprazole 40 mg tablet,delayed 40 mg PO BID #90 tab s 06/20/25 07/10/25 release (Protonix) sucralfate 1 gram tablet 1 g PO QACHS #60 tabs Previous Rx's Medication Instructions Recorded ondansetron HCl 4 mg tablet 4 mg PO Q6H PRN PRN #14 ta bs 06/20/25 pantoprazole 40 mg tablet,delayed 40 mg PO BID #90 tab s 06/20/25 release (Protonix) sucralfate 1 gram tablet 1 g PO QACHS #60 tabs Allergies Allergy/AdvReac Type Severity Reaction Status Date / Time doxycycline Allergy Mild vomiting Verified 07/10/25 10:16 General Stated Complaint: Nausea/Vomit/Diar FLORI: 3 Review of Systems All systems reviewed & are unremarkable except as noted in HPI and below Constitutional Constitutional: Denies fever(s) Cardiovascular Cardiovascular: Reports lightheadedness Exam Const General: cooperative and no acute distress [facility] Mouth: moist mucous membranes Eyes Conjunctivae: normal conjunctivae Sclera: normal sclerae Resp Auscultation: clear to auscultation bilaterally, no rales, no rhonchi and no wheezes Cardio Rate: regular rate and not tachycardic Rhythm: regular rhythm GI Palpation: soft, not firm, no guarding, no masses, not rigid and nontender Skin General skin exam: no rashes or lesions noted Neuro General: patient alert, patient awake and tone normal Extrem General: no edema Psych Appearance: grossly normal Mental Status: mental status grossly normal Course Vital Signs Vital signs: Vital Signs Temperature 36.7 C 07/10/25 10:10 Pulse 63 07/10/25 10:10 Respiratory Rate 18 07/10/25 10:10 Blood Pressure 115/80 07/10/25 10:10 Pulse Oximetry 96 07/10/25 10:10 Temperature 36.7 C 07/10/25 10:15 Temperature Source Oral 07/10/25 10:15 Pulse 63 07/10/25 10:15 Respiratory Rate 18 07/10/25 10:15 Blood Pressure 115/80 07/10/25 10:15 Blood Pressure Position Sitting 07/10/25 10:15 Pulse Oximetry 96 07/10/25 10:15 Oxygen Delivery Method Room Air 07/10/25 10:10 Oxygen Flow Rate 0 07/10/25 10:10 Lab/Test Results Lab/Test Results: Laboratory Tests Range/Units 07/10/25 11:10 WBC (4.4-10.8) 10^3/uL 5.81 RBC (3.93-5.22) 10^6/uL 3.53 L Hgb (11.2-15.7) g/dL 9.0 L Hct (36.0-46.0) % 28.5 L MCV (80-95) fL 81 MCH (27.0-33.0) pg 25.5 L MCHC (32.0-36.0) % 31.6 L RDW (11.7-14.6) % 15.2 H Plt Count (130-400) 10^3/uL 437 H MPV (8.0-11.0) fL 8.7 Immature Gran % % 0.3 Neutrophils % % 54.0 Lymphocytes % % 38.2 Monocytes % % 6.0 Eosinophils % % 1.0 Basophils % % 0.5 Nucleated RBC % (0.0-0.3) % 0.0 Absolute Neutrophils (1.2-6.7) 10^3/uL 3.13 Absolute Lymphocytes (1.2-3.4) 10^3/uL 2.22 Absolute Monocytes (0.1-0.8) 10^3/uL 0.35 Absolute Eosinophils (0.0-0.7) 10^3/uL 0.06 Absolute Basophils (0.0-0.2) 10^3/uL 0.03 Sodium (136-145) mmol/L 137 Potassium (3.5-5.1) mmol/L 3.8 Chloride (98-107) mmol/L 100 Carbon Dioxide (21.0-32.0) mmol/L 27.6 Anion Gap (3-11) mmol/L 9.4 BUN (7-18) mg/dL 12 Creatinine (0.55-1.02) mg/dL 0.6 Est GFR (CKD-EPI 2020) (mL/min/1.73m2) 116.30 Glucose (74-106) mg/dL 123 H Calcium (8.5-10.1) mg/dL 9.0 Magnesium (1.8-2.4) mg/dL 2.4 Total Bilirubin (0.2-1.0) mg/dL 0.3 AST (15-37) U/L 29 ALT (14-59) U/L 30 Alkaline Phosphatase (46-116) U/L 81 Total Protein (6.4-8.2) g/dL 8.7 H Albumin (3.4-5.0) g/dL 4.2 Lipase (<78) U/L 40 Serum HCG, Qual Negative ABO/Rh B Negative Antibody Screen NEGATIVE Medical Decision Making ASSESSMENT AND PLAN Initial Assessment: 40-year-old female presenting with dizziness, lightheadedness, and nausea. History of bleeding stomach ulcer and acute upper GI bleed 2 weeks ago. Reports black stools recently, no bloody stools since discharge. Hemodynamically stable. Differential Diagnosis: - Anemia: History of anemia during last visit. Blood tests to check levels. - GI Bleed: History of bleeding ulcer. Black stools noted. Blood tests to assess. - Liver/Pancreas Issues: Nausea present. Blood tests to evaluate liver and pancreas function. ED Course: - Labs reviewed: Patient has anemia, hemoglobin improved from prior now 9 - Intravenous fluids administered. - Zofran administered for nausea. - Protonix administered intravenously. - I spoke with Dr. Salgado, on-call general surgeon, he evaluated the patient in the emergency department and recommends close outpatient follow-up. He will be prescribing sucralfate. - Plan to continue PPI, patient has discontinued NSAID. Patient stable and requesting discharge. Usual and customary discharge instructions reviewed. Clinical Impression: - Dizziness - Anemia - Nausea - Stomach ulcer Disposition: - Follow-Up: Endoscopy follow-up scheduled. Follow-up with regular doctor. This document was written with the assistance of [employer]. The patient consented to its use. Lab Data Lab results reviewed: Yes I reviewed the patient's lab results. Quality:SDOH Health Related Social Needs: Health related social needs risk of homeless education Health related social needs details n/a PFSH All Active Problems (Updated 07/10/25 @ 13:58 by Donta Mccormick MD) Stomach ulcer (Acute) Anemia (Chronic) Right carpal tunnel syndrome (Acute) Attention deficit disorder (Acute) Family problems (Acute) Abnormal immunological finding in specimen from female genital organ (Acute) Paresthesia (Acute) Fatigue (Acute) Acne (Acute) Amenorrhea (Acute) Periapical abscess (Acute) Insomnia (Acute) Opioid dependence (Acute) Anxiety (Chronic) Obesity (Chronic) Medical History Anemia FH: cholecystectomy Surgical History History of cholecystectomy Hx of appendectomy Dilation and curettage Family History (Updated 06/18/25 @ 22:24 by Naun Sloan MD) Father Hypertension Maternal Grandmother Heart disease Maternal Grandfather Diabetes Other FH: cholecystectomy Social History Smoking/Tobacco Use Status: Never Smoking risk assessment performed?: Yes Alcohol Intake: never Drug use: Current Sobriety Substance use type: does not use and marijuana Details: methadone 10mg last week Housing: apartment Do you feel safe at home: Yes Do you feel safe in your relationship?: Yes Female Reproductive History Menstrual Age of Menarche: 14 control method: none History Past Pregnancies Del. Date GA/Weeks # Preg Succ Route Wgt Sex Labor Lgth Anesth esia Location Prov Complic Unknown No Yes vaginal 3486.991 g Female
[2025-07-10 13:55] VITALS: BP 128/62; PULSE 51; TEMP 36.3; O2SAT 100
== END 2025-07-10 14:05 | disposition home or self-care (01) ==
PROVIDERS: Emergency Provider Student in an Organized Health Care Education/Training Program; PCP Family Medicine
DX: K25.9 Gastric ulcer, unspecified as acute or chronic, without hemorrhage or perforation (principal); Z59.811 Housing instability, housed, with risk of homelessness; R11.0 Nausea
CPT/HCPCS: 99283; 99284; 96374; 96375; 36415; 80053; 83690; 86850; 86900; 86901; 93005; 83735; 84703; 85025; 93010; J2405; J2470